=== PATIENT | female | born 1990 | race Caucasian/White ===

== ENCOUNTER 2017-08-26 09:19 | Inpatient (IN) | payer OTHER ==
[~2017-08-26] VITALS: Ht 154.9 cm; Wt 52.2 kg
[~2017-08-26 09:19] MED LIST: ALYACEN 1-35-21 EACH PO; BLISOVI 24 FE1 EACH PO; FLEXERIL10 MG PO; HYDROXYZINE HCL50 M1 PO; MULTI-DAY VITA1 EACH PO; OXYCODONE HCL10 M2 PO; PERCOCET 325 MG1 TA2 PO; PERCOCET 5-3251 EACH PO; PREDNISONE10 M2 PO; TRI-LO-SPRINTEC1 TAB PO; TRIAMCINOLONE A15 G4 TOP; TYLENOL #31 TAB PO; TYLENOL WITH C1 EACH PO; ZOFRAN4 M2 PO
[2017-08-26 10:20] LABS: ABSOLUTE BASOPHIL COUNT 0 /CUMM (0.0-0.2); ABSOLUTE EOSINOPHIL COUNT 0.2 /CUMM (0.0-0.7); ABSOLUTE GRANULOCYTE CT 4.1 /CUMM (1.4-6.5); ABSOLUTE LYMPH COUNT 2.8 /CUMM (1.2-3.4); ABSOLUTE MONOCYTE COUNT 0.5 /CUMM (0.10-0.60); BASOPHIL % 0.5 % (0.0-2.0); EOSINOPHIL % 2.1 % (0-5); GRANULOCYTE % 54.1 % (42.2-75.2); HEMATOCRIT 37.9 % (37-47); MEAN CORPUSCULAR HGB 27.3 PG (27.0-31.0); MEAN CORPUSCULAR HGB CONC 33.4 G/DL (33.0-37.0); MEAN CORPUSCULAR VOLUME 81.8 FL (81.0-99.0); MEAN PLATELET VOLUME 6.4 FL (7.4-10.4); PLATELET COUNT 331 /CUMM (130-400); RBC DISTRIBUTION WIDTH 13.6 % (11.5-14.5); RED BLOOD CELL CT 4.64 /CUMM (4.20-5.40); WHITE BLOOD CELL COUNT 7.6 /CUMM (4.8-10.8)
[2017-08-26] MEDS ORDERED: ALPRAZOLAM0.25 M1 PO (10:28)
[2017-08-26] MEDS ORDERED: FLUOXETINE HCL20 M2 PO (10:28)
--- NOTE | 2017-08-26 10:35 | ED GI/GU/ABDOMINAL COMPLAINT ---
History of Present Illness General Chief Complaint: Abdominal Pain/Flank Pain Stated Complaint: SENT IN BY MD FOR ABD PAIN Source: patient Exam Limitations: no limitations Vital Signs & Intake/Output Vital Signs & Intake/Output Vital Signs Date Time Temp Pulse Resp B/P B/P Pulse O2 O2 Flow FiO2 Mean Ox Delivery Rate 08/29 1443 98.2 69 20 120/60 98 Room Air 08/29 1038 98.2 60 18 104/78 100 08/29 0624 97.5 78 18 110/68 98 ED Intake and Output 08/29 0000 08/28 1200 Intake Total 1980 240 Output Total 450 Balance 1530 240 Intake, IV 40 Intake, Oral 1940 240 Number 5 Bowel Movements Output, Urine 450 Patient 115 lb Weight Allergies Coded Allergies: latex (Intermediate, LUC SKIN CONTACT, LATEX WITH POWDER IF INH ANAPHYLAXIS 01/21/16) poison lazaro extract (Mild, RASH 01/21/16) azithromycin (VOMIT PROFUSELY, STARTED VOMITING BLOOD ENDED UP HOSPITALIZED 08/02) gluten (CELIAC DISEASE RUNS IN FAMILY, PT REPORTS GLUTEN SENSITIVITY 01/21/16) lactose (LACTOSE INTOLERANT 01/21/16) venom-honey bee (BEE VENOM (HONEY BEE)) (ANAPHYLAXIS 01/21/16) Triage Note: PT SENT TO ED BY MD FOR ABD PAIN. PT STATES SHE HAS BEEN HAVING BLACK STOOL BM'S SINCE LAST NIGHT. C/O LOWER ABD PAIN. C/O NAUSEA, DENIES VOMITING. Triage Nurses Notes Reviewed? yes ? N Is pt currently ? No Onset: Gradual Duration: hour(s): Timing: multiple episodes today Quality/Severity: moderate Severity Numbers: 9 Location: generalized abdomen HPI: 26YO female presents to ED complaining of generalized abdominal pain beginning at midnight this morning. Patient states that she is also having black colored stools and diarrhea, episodes approximately every 45 minutes since midnight. Patient reports bloating and nausea. Patient reports taking ibuprofen 800 mg Q4 -6 HOURS for right wrist tendinitis for 3 days in a row, she discontinued ibuprofen on Saturday. Patient has no history of issues related to NSAIDs reports an allergy to Advil coating. The patient denies fevers, chills, vomiting, chest pain. (Brittany GARZA,Lucy Bah) Reconcile Medications Alprazolam 0.25 MG TABLET 1 TAB PO BIDP PRN ANXIETY (Reported) Fluoxetine HCl 20 MG CAPSULE 1 CAP PO DAILY MENTAL HEALTH (Reported) Norethindrone-Ethinyl Estrad (Alyacen 1-35-28 Tablet) 1 MG-35 MCG TABLET 1 TAB PO DAILY BC (Reported) Omeprazole 20 MG CAPSULE. 1 CAP PO DAILY STOMACH HEALTH (Kelvin BEDOLLA,Kemar) Past History Travel History Traveled to [place] past 21 day No Medical History Any Pertinent Medical History? see below for history Neurological: migraine EENT: NONE Cardiovascular: NONE Respiratory: NONE Gastrointestinal: NONE Hepatic: NONE Renal: NONE Musculoskeletal: NONE Psychiatric: NONE Endocrine: NONE Blood Disorders: NONE Cancer(s): NONE QUILTER FIXER/Reproductive: chlamydia, HPV, miscarriage, PID OVARIAN CYST left ovary cyst rupture Surgical History Surgical History: non-contributory Psychosocial History What is your primary language Urdu Tobacco Use: Never used ETOH Use: occasional use Illicit Drug Use: denies illicit drug use Family History Family History, If Any: Relation not specified for: *No pertinent family history Hx Contributory? No (Lucy Yu) Review of Systems Review of Systems Constitutional: Reports: no symptoms. EENTM: Reports: no symptoms. Respiratory: Reports: no symptoms. Cardiovascular: Reports: no symptoms. GI: Reports: see HPI. Genitourinary: Reports: no symptoms. Musculoskeletal: Reports: no symptoms. Skin: Reports: no symptoms. Neurological/Psychological: Reports: no symptoms. Hematologic/Endocrine: Reports: no symptoms. Immunologic/Allergic: Reports: no symptoms. All Other Systems: Reviewed and Negative (Lucy Yu) Physical Exam Physical Exam General Appearance: well developed/nourished, no apparent distress, alert, awake Head: atraumatic, normal appearance Eyes: Bilateral: normal appearance. Ears, Nose, Throat, Mouth: hearing grossly normal Neck: normal inspection, supple, full range of motion Respiratory: normal breath sounds, no respiratory distress, lungs clear Cardiovascular: regular rate/rhythm Gastrointestinal: distension and firmness throughout exam with RLQ tenderness, + Rosving's sign Rectal: heme negative stool Back: normal inspection, normal range of motion Extremities: normal range of motion Neurologic/Psych: awake, alert, oriented x 3 Skin: intact, normal color, warm/dry Core Measures ACS in differential dx? No Sepsis Present: No Sepsis Focused Exam Completed? No (Lucy Yu) Progress Differential Diagnosis: appendicitis, biliary colic, bowel obstruction, ectopic , gastritis, hepatitis, hernia, inflamm bowel dis, intrauterine , kidney stone, ovarian cyst, ovarian torsion, PID/cervicitis, peptic ulcer, PUD/GERD, SBO, threatened AB, UTI/pyelo Plan of Care: Orders Procedure Date/time Status Low Fiber Diet 08/29 L Active HIGH SENSITIVITY CRP 08/29 1058 Complete WESTERGREN SED RATE 08/29 1058 Complete Current Medications Sig/Tracey Start time Last Medication Dose Stop Time Status Admin Omeprazole 20 MG DAILY AC 08/30 0700 AC (Prilosec) Oxycodone/ 1 TAB Q4P PRN 08/29 1100 AC 08/29 Acetaminophen 2034 (Percocet) Dicyclomine HCl 20 MG TIDAC/HS 08/27 1700 AC 08/29 (Bentyl) 2034 Fluoxetine HCl 20 MG DAILY 08/27 1510 AC 08/29 (Prozac) 1123 Phenol 2 SPRAY Q2P PRN 08/27 1430 AC (Chloraseptic (Phenaseptic) [place]) Ondansetron HCl 4 MG Q6P PRN 08/27 0830 AC 08/29 (Zofran) 1819 Laboratory Tests 08/29/17 1122: C-React Prot High Sens 2.8, ESR Westergren 6 08/29/17 0630: CBC w Diff NO MAN DIFF REQ, RBC 4.51, MCV 81.7, MCH 27.7, MCHC 34.0, RDW 13.6, MPV 7.1 L, Gran % 44.5, Lymphocytes % 42.4, Monocytes % 8.9, Eosinophils % 3.5, Basophils % 0.7, Absolute Granulocytes 3.2, Absolute Lymphocytes 3.1, Absolute Monocytes 0.7 H, Absolute Eosinophils 0.3, Absolute Basophils 0.1 Patient has significant abdominal firmness and distention on physical exam. Her CT scan shows fatty liver however no other acute abnormality. Patient's appendix was not visualized well on CT scan. Spoke with Dr. Marcelino regarding this patient and reviewed her CAT scan. Given the patient's normal labs and normal CAT scan reading he feels additional work up could include GI consult and observation. Spoke with DR. Mason - he reviewed her CAT scan and labs and states that if patient continues to clinically appear abnormal she may require observation. Dr. Hipona present to see and evaluate the patient, he agrees with plan for observation or admission given patient's abdominal firmness and distention. Patient's transabdominal exam was limited as patient could not tolerate ultrasound probe. Patient has persistent pain here in the emergency department. Patient's guaiac exam was negative however could not guaiac stool sample, this exam may be limited. Case management recommends full admission for this patient. Spoke with hospitalist Dr. De La Torre regarding this patient's general medicine admission. He recommends NG tube placement for possible decompression. Diagnostic Imaging: Viewed by Me: Radiology Read. Discussed w/RAD: Radiology Read. Radiology Impression: PATIENT: BRIAN NASH PRESENT AGE: 26 PATIENT ACCOUNT NO: [id number] : 91 LOCATION: [facility] ORDERING PHYSICIAN: Lucy GARZA SERVICE DATE: 08/26/17 EXAM TYPE: CAT - CT ABD & PELVIS W IV CONTRAST EXAMINATION: CT ABDOMEN AND PELVIS WITH CONTRAST CLINICAL INFORMATION: Generalized abdominal pain, firmness and distention. Evaluate for obstruction. COMPARISON: Previous CT scans July and October 2015 and pelvic ultrasound August 2015 TECHNIQUE: Multidetector volumetric imaging was performed of the abdomen and pelvis following IV administration of 95 mL of Optiray 320 intravenous contrast. Sagittal and coronal reformatted images were obtained on the technologist's workstation. DLP: 246 mGy-cm FINDINGS : LUNG BASES: The visualized lung bases are unremarkable. LIVER, GALLBLADDER, AND BILIARY TREE: The liver is slightly low in attenuation suggestive of fatty infiltration. No focal liver lesion is seen. The gallbladder is unremarkable. PANCREAS: Unremarkable. SPLEEN: Unremarkable. ADRENAL GLANDS: Unremarkable. KIDNEYS AND URETERS: The kidneys are normal in size, shape, and attenuation. No hydronephrosis, hydroureter, or calculi seen. No perinephric stranding. BLADDER: Not optimally distended. GASTROINTESTINAL TRACT: The small and large bowel are unremarkable. The appendix is is not identified with certainty. No evidence of ascites is seen. ABDOMINAL WALL: No significant hernia is appreciated. LYMPH NODES: Normal. VASCULAR: Unremarkable. PELVIC VISCERA: The uterus and adnexa are unremarkable. OSSEOUS STRUCTURES: Unremarkable. IMPRESSION: Low-attenuation liver suggestive of fatty infiltration otherwise unremarkable exam. No evidence of obstruction. DICTATED BY: Racheal Finley MD DATE/TIME DICTATED:08/26/171205 PAIN MANAGEMENT SPECIALIST:CHAU DATE/TIME TRANSCRIBED:08/26/171205 CONFIDENTIAL, DO NOT COPY WITHOUT APPROPRIATE AUTHORIZATION. <Electronically signed in Other Vendor System> SIGNED BY: Racheal Finley MD 08/26/17 1218 , PATIENT: BRIAN NASH PRESENT AGE: 26 PATIENT ACCOUNT NO: [id number] : 91 LOCATION: [facility] ORDERING PHYSICIAN: Lucy GARZA SERVICE DATE: 08/26/17 EXAM TYPE: US - US- TRANSVAGINAL EXAMINATION: US PELVIS COMPLETE US PELVIS ENDOVAGINAL WITH DOPPLER CLINICAL INFORMATION: Assess for pelvic, uterine, ovarian abnormality. Abdominal pain and distention with firmness COMPARISON: CT earlier the same day. Prior ultrasound 08/26/2015 TECHNIQUE: Transabdominal and transvaginal images of the pelvis were obtained. Color and spectral Doppler evaluation of the ovaries was performed. FINDINGS: Transabdominal imaging was attempted but unsuccessful. The patient was in too much pain to tolerate transabdominal imaging. UTERUS: Anteverted. Normal size and contour, measuring 6.1 x 3.3 x 3.9 cm (cervix to fundus x AP x transverse). Uniform, homogeneous endometrium measures 0.7 cm in width. The cervical length is 2.5 cm. RIGHT OVARY: Normal-appearing right ovary is seen measuring 3.6 x 1.7 x 2.9 cm, volume 9.3 mm. There is a single dominant cyst within the right ovary that measures 2.1 cm in greatest dimension with a peripheral thin septation. No mural nodularity. Normal arterial and venous spectral Doppler waveforms are identified. LEFT OVARY: Normal-appearing left ovary seen measuring 2.0 x 1.4 x 1.3 cm, 1.9 mL volume. Normal arterial and venous spectral Doppler waveforms are identified within the left ovary. FREE FLUID: No pelvic free fluid. IMPRESSION: Limited transabdominal imaging as described above. Normal sonographic appearance of the uterus and ovaries. There is a 2.1 cm dominant cyst in the right ovary, an expected physiologic finding in a reproductive age female patient. Normal arterial and venous spectral Doppler waveforms are identified within the ovaries bilaterally. No findings to suggest active ovarian torsion at the time of the scan. DICTATED BY: Matteo Jones MD DATE/TIME DICTATED:08/26/171706 PAIN MANAGEMENT SPECIALIST:CHAU DATE/TIME TRANSCRIBED:08/26/171706 CONFIDENTIAL, DO NOT COPY WITHOUT APPROPRIATE AUTHORIZATION. <Electronically signed in Other Vendor System> SIGNED BY: Matteo Jones MD 08/26/171712 Initial ED EKG: none (Brittany GARZA,Lucy Bah) Departure Departure Disposition: STILL A PATIENT Condition: Stable Clinical Impression Primary Impression: Intractable abdominal pain Secondary Impressions: Abdominal distention Referrals: Isaiah BEDOLLA,Sai Ledezma (PCP/Family) Departure Forms: Customer Survey General Discharge Information Admission Note Spoke With: Feliciano Fernandez MD Documentation of Exam: Documentation of any treatments & extenuating circumstances including Concerns Regarding Discharge (functional status, medication knowledge or non-compliance, living conditions, etc.) that warrant an admission rather than observation: [ Patient has intractable abdominal pain requiring IV pain medications, persistent abdominal distention and firmness unexplained by imaging here in the emergency department requiring general surgery consult, possible gastroenterology consults , IV fluids, NG tube, repeat labs, premature discharge medically unsafe] (Brittany GARZA,Lucy Bah) Departure Prescriptions: Current Visit Scripts Omeprazole 1 CAP PO DAILY #30 CAP PA/WILLOW WORKER Co-Sign Statement Statement: ED Attending supervision documentation- x I saw and evaluated the patient. I have also reviewed all the pertinent lab results and diagnostic results. I agree with the findings and the plan of care as documented in the PA's/WILLOW WORKER's documentation. Significant distension developing RLQ tenderness [] I have reviewed the ED Record and agree with the PA's/WILLOW WORKER's documentation. [] Additions or exceptions (if any) to the PAs/WILLOW WORKER's note and plan are summarized below: [] (Kelvin BEDOLLA,Kemar)
--- NOTE | 2017-08-26 12:18 | CT SCAN REPORT ---
EXAMINATION: CT ABDOMEN AND PELVIS WITH CONTRAST CLINICAL INFORMATION: Generalized abdominal pain, firmness and distention. Evaluate for obstruction. COMPARISON: Previous CT scans July and October 2015 and pelvic ultrasound August 2015 TECHNIQUE: Multidetector volumetric imaging was performed of the abdomen and pelvis following IV administration of 95 mL of Optiray 320 intravenous contrast. Sagittal and coronal reformatted images were obtained on the technologist's workstation. DLP: 246 mGy-cm FINDINGS: LUNG BASES: The visualized lung bases are unremarkable. LIVER, GALLBLADDER, AND BILIARY TREE: The liver is slightly low in attenuation suggestive of fatty infiltration. No focal liver lesion is seen. The gallbladder is unremarkable. PANCREAS: Unremarkable. SPLEEN: Unremarkable. ADRENAL GLANDS: Unremarkable. KIDNEYS AND URETERS: The kidneys are normal in size, shape, and attenuation. No hydronephrosis, hydroureter, or calculi seen. No perinephric stranding. BLADDER: Not optimally distended. GASTROINTESTINAL TRACT: The small and large bowel are unremarkable. The appendix is is not identified with certainty. No evidence of ascites is seen. ABDOMINAL WALL: No significant hernia is appreciated. LYMPH NODES: Normal. VASCULAR: Unremarkable. PELVIC VISCERA: The uterus and adnexa are unremarkable. OSSEOUS STRUCTURES: Unremarkable. IMPRESSION: Low-attenuation liver suggestive of fatty infiltration otherwise unremarkable exam. No evidence of obstruction.
--- NOTE | 2017-08-26 17:13 | ULTRASOUND REPORT ---
EXAMINATION: US PELVIS COMPLETE US PELVIS ENDOVAGINAL WITH DOPPLER CLINICAL INFORMATION: Assess for pelvic, uterine, ovarian abnormality. Abdominal pain and distention with firmness COMPARISON: CT earlier the same day. Prior ultrasound 08/26/2015 TECHNIQUE: Transabdominal and transvaginal images of the pelvis were obtained. Color and spectral Doppler evaluation of the ovaries was performed. FINDINGS: Transabdominal imaging was attempted but unsuccessful. The patient was in too much pain to tolerate transabdominal imaging. UTERUS: Anteverted. Normal size and contour, measuring 6.1 x 3.3 x 3.9 cm (cervix to fundus x AP x transverse). Uniform, homogeneous endometrium measures 0.7 cm in width. The cervical length is 2.5 cm. RIGHT OVARY: Normal-appearing right ovary is seen measuring 3.6 x 1.7 x 2.9 cm, volume 9.3 mm. There is a single dominant cyst within the right ovary that measures 2.1 cm in greatest dimension with a peripheral thin septation. No mural nodularity. Normal arterial and venous spectral Doppler waveforms are identified. LEFT OVARY: Normal-appearing left ovary seen measuring 2.0 x 1.4 x 1.3 cm, 1.9 mL volume. Normal arterial and venous spectral Doppler waveforms are identified within the left ovary. FREE FLUID: No pelvic free fluid. IMPRESSION: Limited transabdominal imaging as described above. Normal sonographic appearance of the uterus and ovaries. There is a 2.1 cm dominant cyst in the right ovary, an expected physiologic finding in a reproductive age female patient. Normal arterial and venous spectral Doppler waveforms are identified within the ovaries bilaterally. No findings to suggest active ovarian torsion at the time of the scan.
--- NOTE | 2017-08-26 19:33 | History & Physical ---
Khoa Weiss MD 08/26/171931: General Information and HPI MD Statement: I have seen and personally examined BRIAN ZHOU and documented this H&P. The patient is a 26 year old F who presented with a patient stated chief complaint of [abdominal pain and distension]. Source of Information: patient Exam Limitations: no limitations History of Present Illness: Patient is a 26-year-old female with no significant past medical history presents complaining of dark melanotic stool and right lower quadrant pain. Patient reports that she midnight the day of presentation she had the urge to defecate and had loose, black stool. She also began having right lower quadrant pain. She was having approximately 1 bowel movement on hour and they remained soft and black. At that time she also noted abdominal distention. She called her doctor when the office opened and was recommended to come to the ED. She has been taking 800 mg ibuprofen every 4-6 hours for the last several days due to wrist tendinitis. In the past she has had periods of long-term NSAID use as well with no complications. Her pain is in the right lower quadrant sharp, 8/10 radiates to the rest of the abdomen. She has had associated nausea but has not vomited. She denies any chest pain, shortness of breath, fever, chills. Allergies/Medications Allergies: Coded Allergies: latex (Intermediate, LUC SKIN CONTACT, LATEX WITH POWDER IF INH ANAPHYLAXIS 01/21/16) poison lazaro extract (Mild, RASH 01/21/16) azithromycin (VOMIT PROFUSELY, STARTED VOMITING BLOOD ENDED UP HOSPITALIZED 08/02) gluten (CELIAC DISEASE RUNS IN FAMILY, PT REPORTS GLUTEN SENSITIVITY 01/21/16) lactose (LACTOSE INTOLERANT 01/21/16) venom-honey bee (BEE VENOM (HONEY BEE)) (ANAPHYLAXIS 01/21/16) Home Med list Alprazolam 0.25 MG TABLET 1 TAB PO BIDP PRN ANXIETY (Reported) Fluoxetine HCl 20 MG CAPSULE 1 CAP PO DAILY MENTAL HEALTH (Reported) Norethindrone-Ethinyl Estrad (Alyacen 1-35-28 Tablet) 1 MG-35 MCG TABLET 1 TAB PO DAILY BC (Reported) Past History Travel History Traveled to [place] past 21 day No Medical History Neurological: migraine EENT: NONE Cardiovascular: NONE Respiratory: NONE Gastrointestinal: NONE Hepatic: NONE Renal: NONE Musculoskeletal: NONE Psychiatric: NONE Endocrine: NONE Blood Disorders: NONE Cancer(s): NONE FACILITIES ASSISTANT/Reproductive: chlamydia, HPV, miscarriage, PID OVARIAN CYST left ovary cyst rupture Isolation History: Standard Surgical History Surgical History: non-contributory Past Family/Social History Family History Relations & Conditions if any Relation not specified for: *No pertinent family history Psychosocial History Where do you live? Home Services at Home: None Primary Language: [place] Smoking Status: Never Smoked ETOH Use: occasional use Illicit Drug Use: denies illicit drug use Functional Ability ADLs Independent: dressing, eating, toileting, bathing. Ambulation: independent IADLs Independent: shopping, housework, finances, food prep, telephone, transportation , medication admin. Review of Systems Review of Systems Constitutional: Denies: chills, fever. EENTM: Reports: no symptoms. Cardiovascular: Denies: chest pain, palpitations, syncope. Respiratory: Denies: cough, short of breath. GI: Reports: abdominal pain, bloating, constipation, melena, nausea. Genitourinary: Reports: no symptoms. Musculoskeletal: Reports: no symptoms. Skin: Reports: no symptoms. Neurological/Psychological: Reports: no symptoms. Exam & Diagnostic Data Last 24 Hrs of Vital Signs/I&O Vital Signs Date Time Temp Pulse Resp B/P B/P Pulse O2 O2 Flow FiO2 Mean Ox Delivery Rate 08/26 2154 97.9 65 18 117/80 99 Room Air 08/26 1747 98.3 70 12 110/60 98 Room Air 08/26 1409 98.5 51 18 128/87 95 Room Air 08/26 1341 98.7 08/26 1309 98.5 08/26 1150 98.5 53 18 118/66 100 Room Air 08/26 1023 98 08/26 0933 97.4 61 20 134/85 98 Room Air Intake & Output 08/27 0800 08/27 0000 08/26 1600 Intake Total 1000 Output Total 200 Balance -200 1000 Intake, IV 1000 Intake, Oral 0 Output, 200 Gastric Drainage Patient 115 lb 120 lb Weight Weight Reported by Patient Reported by Patient Measurement Method Physical Exam General Appearance Alert, Oriented X3, Cooperative Skin No Rashes Skin Temp/Moisture Exam: Warm/Dry Cardiovascular Regular Rate, Normal S1, Normal S2 Lungs Clear to Auscultation, Normal Air Movement Abdomen Normal Bowel Sounds, distended, tender to palpation diffusely worst in the RLQ Neurological Normal Speech, Strength at 5/5 X4 Ext, Sensation Intact, Cranial Nerves 3-12 NL Extremities No Clubbing, No Cyanosis, No Edema Last 24 Hrs of Labs/Alex: Laboratory Tests 08/26/17 1313: Lactic Acid Cancelled 08/26/17 1035: Urine Opiates Screen < 100, Methadone Screen < 40, Barbiturate Screen < 60, Ur Phencyclidine Scrn < 6.00, Amphetamines Screen < 100, U Benzodiazepines Scrn 398 H, Urine Cocaine Screen < 50, Urine Cannabis Screen < 5.00, Urine Color YEL, Urine Clarity CLEAR, Urine pH 6.0, Ur Specific [place] 1.025, Urine Protein NEG, Urine Ketones NEG, Urine Nitrite NEG, Urine Bilirubin NEG, Urine Urobilinogen 0.2, Ur Leukocyte Esterase NEG, Ur Microscopic EXAM NOT REQUIRED, Urine Hemoglobin NEG, Urine Glucose NEG, Urine Test NEGATIVE 08/26/17 1013: Anion Gap 11, Estimated GFR > 60, BUN/Creatinine Ratio 30.0 H, Glucose 80, Lactic Acid 0.8, Calcium 9.8, Total Bilirubin 0.7, AST 28, ALT 45, Alkaline Phosphatase 66, C-Reactive Prot, Quant 0.6, Total Protein 7.8, Albumin 4.6, Globulin 3.2, Albumin/Globulin Ratio 1.4, CBC w Diff NO MAN DIFF REQ, RBC 4.64, MCV 81.8, MCH 27.3, MCHC 33.4, RDW 13.6, MPV 6.4 L, Gran % 54.1, Lymphocytes % 36.3, Monocytes % 7.0, Eosinophils % 2.1, Basophils % 0.5, Absolute Granulocytes 4.1, Absolute Lymphocytes 2.8, Absolute Monocytes 0.5, Absolute Eosinophils 0.2, Absolute Basophils 0 Microbiology 08/26 1347 NASOPHARYN: Influenza Virus A & B Rapid Smear - COMP Diagnostic Data CXR Results no acute abnormality of the chest Other Results CT abd/pelvis with IV contrast LUNG BASES: The visualized lung bases are unremarkable. LIVER, GALLBLADDER, AND BILIARY TREE: The liver is slightly low in attenuation suggestive of fatty infiltration. No focal liver lesion is seen. The gallbladder is unremarkable. PANCREAS: Unremarkable. SPLEEN: Unremarkable. ADRENAL GLANDS: Unremarkable. KIDNEYS AND URETERS: The kidneys are normal in size, shape, and attenuation. No hydronephrosis, hydroureter, or calculi seen. No perinephric stranding. BLADDER: Not optimally distended. GASTROINTESTINAL TRACT: The small and large bowel are unremarkable. The appendix is is not identified with certainty. No evidence of ascites is seen. ABDOMINAL WALL: No significant hernia is appreciated. LYMPH NODES: Normal. VASCULAR: Unremarkable. PELVIC VISCERA: The uterus and adnexa are unremarkable. OSSEOUS STRUCTURES: Unremarkable. IMPRESSION: Low-attenuation liver suggestive of fatty infiltration otherwise unremarkable exam. No evidence of obstruction. Transvaginal US Transabdominal imaging was attempted but unsuccessful. The patient was in too much pain to tolerate transabdominal imaging. UTERUS: Anteverted. Normal size and contour, measuring 6.1 x 3.3 x 3.9 cm (cervix to fundus x AP x transverse). Uniform, homogeneous endometrium measures 0.7 cm in width. The cervical length is 2.5 cm. RIGHT OVARY: Normal-appearing right ovary is seen measuring 3.6 x 1.7 x 2.9 cm, volume 9.3 mm. There is a single dominant cyst within the right ovary that measures 2.1 cm in greatest dimension with a peripheral thin septation. No mural nodularity. Normal arterial and venous spectral Doppler waveforms are identified. LEFT OVARY: Normal-appearing left ovary seen measuring 2.0 x 1.4 x 1.3 cm, 1.9 mL volume. Normal arterial and venous spectral Doppler waveforms are identified within the left ovary. FREE FLUID: No pelvic free fluid. IMPRESSION: Limited transabdominal imaging as described above. Normal sonographic appearance of the uterus and ovaries. There is a 2.1 cm dominant cyst in the right ovary, an expected physiologic finding in a reproductive age female patient. Normal arterial and venous spectral Doppler waveforms are identified within the ovaries bilaterally. No findings to suggest active ovarian torsion at the time of the scan. ABD XR Normal bowel gas pattern without dilated loops of bowel. No air-fluid levels on the upright view. No free air. The lung bases are clear. No acute osseous abnormality. No suspicious calcifications. IMPRESSION: Normal bowel gas pattern. No evidence of free air. Assessment/Plan Assessment: Patient is a 26-year-old female with PMH significant for anxiety, presents complaining of dark melanotic stool and right lower quadrant pain. She had loose dark brown to black stool and as been taking high-dose ibuprofen for the past several days. She has associated abdominal distention, nausea no vomiting. While in the ED and NG tube was placed, however once the patient was on the floor she became very anxious, stating that she could not breathe and the NG tube had to be removed. Vital signs on admission: T 97.4, BP 61, RR 20, BP 134/85, pulse ox 98% on room air Labs: H/H 12.7/37.9, BUN 18, BUN/Cr ratio 30 Problem list #GI bleed likely upper secondary to NSAID use, #Right lower quadrant pain and worsening abdominal distention cannot rule out IBD at this time, imaging shows no obstruction #Anxiety Plan -Admit to general medicine floor -Keep nothing by mouth pending GI evaluation -GI consult placed -IV PPI twice a day -Trend CBC -Adequate pain control Diet: Nothing by mouth DVT prophylaxis: Alps, no pharmacological prophylaxis given GI bleed CODE STATUS: Full Code As Ranked By This Provider Problem List: 1. Abdominal distention 2. Intractable abdominal pain Core Measures/Misc (02/03) Acute Coronary Syndrome ACS Diagnosis: No Congestive Heart Failure Congestive Heart Failure Diagnosis No Cerebrovascular Accident CVA/TIA Diagnosis: No VTE (View Protocol) VTE Risk Factors Immobility No Mechanical VTE Prophylaxis d/t N/A MechProphylax Ordered No VTE Pharm Prophylaxis d/t Bleeding (Active) Sepsis (View protocol) Sepsis Present: No Susannah George 08/27/17 0007: Resident Review Statement Resident Statement: examined this patient, discussed with communications intern, agreed with communications intern, reviewed EMR data (avail), reviewed images Other Findings: 26 year old women with past medical history significant for anxiety, remote history of ovarian rupture comes in for for evaluation of multiple episodes of dark-colored stools associated with right upper lower quadrant, abdominal pain and nausea. Boyfriend is at bedside. Incident last few days she has been taking 800mg of ibuprofen daily for wrist pain. She does give history of NSAID use in the past for pain. Denies dizziness, shortness of breath, syncope, palpitations, bright red bleeding per rectum, any association with eating, fever, chills or any previous similar episodes Her LMP was 18 of august, no abnormal menstrual bleeding noted, urine test neg Vitals temperature 98.5, heart rate 51, respiratory rate 81, blood pressure 128/ 87, saturating 95% on room air. Examination patient is alert oriented and not in acute distress. On examination abdomem is distended tender to right upper and lower quadrant, with some rigidity noted. Normal bowel sounds heard in all areas. No rebound tenderness noted. Rest of examination as above. Guaiac negative in the ED Labs on admission CBC/ BeP unremarkable Transvaginal ultrasound was within normal limits CT ABD & PELVIS W IV CONTRAST Low-attenuation liver suggestive of fatty infiltration otherwise unremarkable exam. No evidence of obstruction. ED course: NG tube was placed in ED, our patient was unable to tolerate it and NG tube was removed as soon as she was transferred to the floor. Assessment: In the setting of recent ibuprofen use peptic ulcer disease is high on the differentials. other possibilities are irritable bowel syndrome versus cholecystitis less likely as she has no right upper quadrant abdominal pain with a normal T bili, low suspicion for pancreatitis as her lipase is 59 plan admit to Gen medicine, vitals per protocol Keep patient nothing by mouth for now to promote bowel rest and possible endoscopy tomorrow IV fluids D5 half at 75 mL GI consult in the morning Follow-up morning labs Morphine for point control DVT prophylaxis with Alps Avoid NSAIDs Patient is full code Feliciano Fernandez MD 08/27/17 0132: Attending MD Review Statement Attending Statement Attending MD Statement: examined this patient, discuss w/resident/PA/HAND MOLDER, agreed w/resident/PA/HAND MOLDER, discussed with nursing Attending Assessment/Plan: Ms. Zhou is a 26-year-old female with h/o anxiety, remote h/o ovarian rupture presents with complaints of right lower quadrant pain more in severity compared to the diffuse abdominal pain all over and back tarry stools since yesterday. Vision has been having poor by mouth intake for the past 3 days. Patient has been taking ibuprofen 600 mg every 4-6 hours in the past week for wrist tendinitis. On exam - BP - 110/60, HR of 70, RR of 12, afebrile General Appearance Alert, Oriented X3 Skin Temp/Moisture Exam: Warm/Dry Cardiovascular Normal S1, Normal S2 Lungs Clear to Auscultation bilaterally Abdomen Normal Bowel Sounds,distended, tender all over, specifically in the right lower quadrant Excessive voluntary guarding and rigidity Neurological No focal neurological deficits Extremities No Clubbing, No Cyanosis, No Edema CT Abdomen Pelvis - Low-attenuation liver suggestive of fatty infiltration otherwise unremarkable exam. No evidence of obstruction. Transvaginal US - Limited transabdominal imaging as described above. Normal sonographic appearance of the uterus and ovaries. There is a 2.1 cm dominant cyst in the right ovary, an expected physiologic finding in a reproductive age female patient. Normal arterial and venous spectral Doppler waveforms are identified within the ovaries bilaterally. No findings to suggest active ovarian torsion at the time of the scan. Assessment 1. Abdominal pain with loose bowel movements - DD: PUD, malabsorption syndromes, IBD, cholecystitis 2. Dark tarry stools with recent NSAID use - ?NSAID induced PUD 3. Anxiety Plan NPO, IVF, IV Protonix 40 mg BID GI consult - possible EGD in AM. If normal may need colonoscopy to assess for IBD Repeat CBC. Morphine for pain control Avoid NSAIDS, will obtain lipase levels DVT px -Alps
[2017-08-26 21:54] VITALS: BP 117/80
--- NOTE | 2017-08-26 23:10 | RADIOLOGY REPORT ---
EXAMINATION:\H\ \N\XR CHEST CLINICAL INFORMATION: NG tube placement. COMPARISON: CT scan abdomen pelvis 08/26/2017 TECHNIQUE: Frontal view of the chest was obtained. 9:10 PM FINDINGS: The nasogastric tube tip is in the stomach. The sidehole is at the level of the gastroesophageal junction. The catheter could be advanced up to 6 cm to move the sidehole into the stomach. There is no acute abnormality of the chest. Lungs are clear. No pulmonary vascular congestion. The cardiac and mediastinal contours are normal. The heart size is normal. There is no pleural effusion. There is no pneumothorax. IMPRESSION: The nasogastric tube tip is in the stomach. The sidehole is at the level of the gastroesophageal junction. The catheter could be advanced up to 6 cm to move the sidehole into the stomach.
--- NOTE | 2017-08-26 23:32 | RADIOLOGY REPORT ---
EXAMINATION: XR ABDOMEN MULTIPLE VIEWS CLINICAL INDICATION: Abdominal pain and distention COMPARISON: 08/26/2017 TECHNIQUE: 2 views of the abdomen. FINDINGS: Normal bowel gas pattern without dilated loops of bowel. No air-fluid levels on the upright view. No free air. The lung bases are clear. No acute osseous abnormality. No suspicious calcifications. IMPRESSION: Normal bowel gas pattern. No evidence of free air.
[2017-08-27 02:06] VITALS: BP 116/53
--- NOTE | 2017-08-27 07:02 | PN- Housestaff ---
Thomas Alexander MD,[facility] 08/27/17 0702: Subjective Follow-up For: Abdominal pain R/o GI bleeding Subjective: Patient visited today, was lying in bed in mild acute distress, was alert and oriented, was NPO and planned for EGD today. still complaining of abdominal pain Complained of bloody urine for one time overnight. No more bowel movements. No fever or chills, no shortness of breathing, no chest pain, no other events. Review of Systems Constitutional: Reports: see HPI. Objective Last 24 Hrs of Vital Signs/I&O Vital Signs Date Time Temp Pulse Resp B/P B/P Pulse O2 O2 Flow FiO2 Mean Ox Delivery Rate 08/27 0733 98.1 65 20 106/70 99 Room Air 08/27 0206 98.1 66 18 116/53 99 Room Air 08/26 2154 97.9 65 18 117/80 99 Room Air 08/26 1747 98.3 70 12 110/60 98 Room Air 08/26 1409 98.5 51 18 128/87 95 Room Air Intake & Output 08/27 1600 08/27 0800 08/27 0000 Intake Total 700 150 Output Total 300 Balance 700 -150 Intake, IV 700 150 Intake, Oral 0 0 Number 0 0 Bowel Movements Output, 300 Gastric Drainage Patient 115 lb Weight Weight Reported by Patient Measurement Method Physical Exam General Appearance: Alert, Oriented X3, Cooperative, Mild Distress Skin: No Significant Lesion Skin Temp/Moisture Exam: Warm/Dry Sepsis Skin Exam (color): Normal for Ethnicity HEENT: Atraumatic, EOMI, Mucous Membr. moist/pink Cardiovascular: Regular Rate, Normal S1, Normal S2 Lungs: Clear to Auscultation Abdomen: mildly tenderness to palpitation in right lower quadrant Extremities: No Cyanosis, No Edema Current Medications: Current Medications Sig/Tracey Start time Last Medication Dose Route Stop Time Status Admin Acetaminophen 1,000 MG ONCE ONE 08/26 2230 DC 08/27 N/A 1 UNIT IV 08/26 2244 0011 Benzocaine/Butamben/ 1 JANUARY ONCE ONE 08/26 2114 DC Tetracaine HCl TOP 08/27 2115 Dextrose/Sodium 1,000 ML .[id number] 08/26 2014 AC 08/27 Chloride IV 0900 Dicyclomine HCl 20 MG 4 TIMES/DAY 08/27 1400 UNVr PO Lidocaine 2 JANUARY .STK-MED ONE 08/27 1325 DC TOP 08/27 1326 Lidocaine 50 ML .STK-MED ONE 08/27 1325 DC TOP 08/27 1326 Lidocaine 0 .STK-MED ONE 08/26 2058 DC TOP Lidocaine 15 ML ONCE ONE 08/26 2045 DC 08/26 PO 08/26 2045 2105 Lorazepam 0.5 MG ONCE ONE 08/26 2300 CAN IV 08/26 2301 Metoclopramide HCl 10 MG ONCE ONE 08/26 1745 CAN IV 08/26 174 Metoclopramide HCl 0 .STK-MED ONE 08/26 1309 CAN .ROUTE Morphine Sulfate 2 MG Q5 PRN 08/27 0520 AC 08/27 IV 1134 Morphine Sulfate 2 MG Q4P PRN 08/27 0445 DC IV Morphine Sulfate 0 .STK-MED ONE 08/26 204 DC .ROUTE Morphine Sulfate 1 MG ONCE ONE 08/26 204 DC 08/26 IV 08/26 2045 2105 Morphine Sulfate 0 .STK-MED ONE 08/26 1804 DC .ROUTE Morphine Sulfate 2 MG ONCE ONE 08/26 1800 DC 08/26 IV 08/26 1801 1802 Morphine Sulfate 0 .STK-MED ONE 08/26 1423 DC .ROUTE Morphine Sulfate 2 MG ONCE ONE 08/26 1415 DC 08/26 IV 08/26 1416 1419 Ondansetron HCl 4 MG Q6P PRN 08/27 0830 AC 08/27 IV 0831 Ondansetron HCl 4 MG ONCE ONE 08/26 2215 DC 08/26 IV 08/26 2216 2230 Ondansetron HCl 0 .STK-MED ONE 08/26 1804 DC .ROUTE Ondansetron HCl 4 MG ONCE ONE 08/26 1745 DC 08/26 IV 08/26 1746 1802 Pantoprazole Sodium 40 MG BID 08/26 2300 AC 08/27 IV 0831 Potassium Chloride 40 MEQ .Q10H 08/26 2014 DC Dextrose/Water 1,000 ML IV Last 24 Hrs of Lab/Alex Results Last 24 Hrs of Labs/Mics: Laboratory Tests 08/27/17 0606: Anion Gap 8, Estimated GFR > 60, BUN/Creatinine Ratio 13.3, TSH 2.730, Free T4 1.03, CBC w Diff NO MAN DIFF REQ, RBC 4.18 L, MCV 82.1, MCH 27.9, MCHC 34.0, RDW 13.8, MPV 6.9 L, Gran % 51.3, Lymphocytes % 38.6, Monocytes % 7.3, Eosinophils % 2.3, Basophils % 0.5, Absolute Granulocytes 3.5, Absolute Lymphocytes 2.7, Absolute Monocytes 0.5, Absolute Eosinophils 0.2, Absolute Basophils 0 Assessment/Plan Assessment: Patient is a 26-year-old female presented with dark stool and RLQ pain, nausea but no Vomiting h/o taking ibuprofen PMH: anxiety Vital signs on admission: T 97.4, BP 61, RR 20, BP 134/85, pulse ox 98% on room air Labs: H/H 12.7/37.9, BUN 18, BUN/Cr ratio 30 Patient was admitted to general medicine floor for management of following conditions: RLQ pain, dark stool, R/O GI bleeding No obstruction was found in imaging. Mclean scoring for appendicitis was insignificant. GI consult was placed and EGD was done which did not show any pathology. -Admit to general medicine floor -clear liq diet -dicyclomin per GI -Follow consult placed -IV PPI twice a day -Trend CBC in am -Adequate pain control Diet: clear liq diet DVT prophylaxis: Alps, no pharmacological prophylaxis given still risk of GI bleed CODE STATUS: Full Code Problem List: 1. Abdominal pain Pain Ratin Pain Location: RLQ Pain Goal: Pain 4 or less Pain Plan: Continue current plan, add dicyclomine Tomorrow's Labs & Rationales: Freda Womack MD 08/27/17 1633: Attending MD Review Statement Attending Statement Attending MD Statement: examined this patient, discuss w/resident/PA/TAX COLLECTION COORDINATOR, agreed w/resident/PA/TAX COLLECTION COORDINATOR, discussed with family, reviewed EMR data (avail), discussed with nursing, discussed with case mgmt, amended to note Attending Assessment/Plan: Patient seen and examined. Resting comfortably and not in any acute distress. Boyfriend present at the bedside. No reports of bowel movements overnight. She did report to staff that she urinated blood earlier on today but stated subsequently that this is stable. Urinalysis shows no evidence of red blood cells. She complained of abdominal pain at the time of the visit. On examination abdomen is nondistended, soft. She reported tenderness in the right flank. There is no rebound or guarding. Bowel sounds are normal. EGD done today was unremarkable. Random biopsies were taken. It is unclear the etiology of her symptoms. Gastroenterology service is recommending starting patient on antispasmodic therapy. Service is also considering performing a colonoscopy for further evaluation of her complaints of abdominal discomfort. We will monitor hemoglobin levels overnight. Colonoscopy is no plan for this hospitalization she may be discharged home and followed up in the GI clinic as an outpatient.
[2017-08-27 07:33] VITALS: BP 106/70
[2017-08-27 08:08] LABS: ABSOLUTE BASOPHIL COUNT 0 /CUMM (0.0-0.2); ABSOLUTE EOSINOPHIL COUNT 0.2 /CUMM (0.0-0.7); ABSOLUTE GRANULOCYTE CT 3.5 /CUMM (1.4-6.5); ABSOLUTE LYMPH COUNT 2.7 /CUMM (1.2-3.4); ABSOLUTE MONOCYTE COUNT 0.5 /CUMM (0.10-0.60); BASOPHIL % 0.5 % (0.0-2.0); EOSINOPHIL % 2.3 % (0-5); GRANULOCYTE % 51.3 % (42.2-75.2); HEMATOCRIT 34.3 % (37-47); MEAN CORPUSCULAR HGB 27.9 PG (27.0-31.0); MEAN CORPUSCULAR VOLUME 82.1 FL (81.0-99.0); MEAN PLATELET VOLUME 6.9 FL (7.4-10.4); PLATELET COUNT 276 /CUMM (130-400); RBC DISTRIBUTION WIDTH 13.8 % (11.5-14.5); RED BLOOD CELL CT 4.18 /CUMM (4.20-5.40); WHITE BLOOD CELL COUNT 6.9 /CUMM (4.8-10.8)
--- NOTE | 2017-08-27 09:30 | Cons- Gastroenterology ---
General Information and HPI Consulting Request Date of Consult: 08/27/17 Requested By: Freda Ling MD Reason for Consult: GI bleed Abdominal pain Source of Information: patient History of Present Illness: The patient has no usual or recurrent GI symptoms such as heartburn, indigestion , abdominal pain, or irregular bowel habits. There is no previous history of GI bleeding. She has not been losing weight, her appetite has been normal. 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 She has no dysuria or frequent urinary tract infections. There is no family history of inflammatory bowel disease, peptic ulcer disease, GI malignancy. The patient has been using NSAIDs on a regular basis, with an increase in dose to several times per day recently. 2 days ago she began to have frequent loose black/tarry bowel movements, unaccompanied by bright red blood (not seeping into the toilet water). She then began to develop right-sided abdominal pain, worse in the right lower quadrant, with some radiation to the periumbilical area. Her abdomen became distended. Finally, she developed nausea, with several episodes of vomiting described as "pink." Her last bowel movement was yesterday morning; since that time she has not had significant passage of flatus, nor eructation. CT scan and transvaginal ultrasound performed yesterday were unrevealing. Her stool was reported as guaiac negative in the emergency room. Allergies/Medications Allergies: Coded Allergies: latex (Intermediate, LUC SKIN CONTACT, LATEX WITH POWDER IF INH ANAPHYLAXIS 01/21/16) poison lazaro extract (Mild, RASH 01/21/16) azithromycin (VOMIT PROFUSELY, STARTED VOMITING BLOOD ENDED UP HOSPITALIZED 08/02) gluten (CELIAC DISEASE RUNS IN FAMILY, PT REPORTS GLUTEN SENSITIVITY 01/21/16) lactose (LACTOSE INTOLERANT 01/21/16) venom-honey bee (BEE VENOM (HONEY BEE)) (ANAPHYLAXIS 01/21/16) Home Med List: Alprazolam 0.25 MG TABLET 1 TAB PO BIDP PRN ANXIETY (Reported) Fluoxetine HCl 20 MG CAPSULE 1 CAP PO DAILY MENTAL HEALTH (Reported) Norethindrone-Ethinyl Estrad (Alyacen 1-35-28 Tablet) 1 MG-35 MCG TABLET 1 TAB PO DAILY BC (Reported) Current Medications: Current Medications Sig/Tracey Start time Last Medication Dose Route Stop Time Status Admin Acetaminophen 1,000 MG ONCE ONE 08/26 2230 DC 08/27 N/A 1 UNIT IV 08/26 2244 0011 Acetaminophen 0 .STK-MED ONE 08/26 1309 DC IV Acetaminophen 1,000 MG ONCE ONE 08/26 1230 DC 08/26 N/A 1 UNIT IV 08/26 1244 1309 Benzocaine/Butamben/ 1 JANUARY ONCE ONE 08/26 2115 DC Tetracaine HCl TOP 08/26 2116 Dextrose/Sodium 1,000 ML .[id number] 08/26 2014 AC 08/27 Chloride IV 0900 Famotidine 0 .STK-MED ONE 08/26 1309 DC IV Famotidine 20 MG ONCE ONE 08/26 1230 DC 08/26 IV 08/26 1231 1309 Lidocaine 0 .STK-MED ONE 08/26 2058 DC TOP Lidocaine 15 ML ONCE ONE 08/26 2045 DC 08/26 PO 08/26 2046 2105 Lorazepam 0.5 MG ONCE ONE 08/26 2300 CAN IV 08/26 2301 Metoclopramide HCl 10 MG ONCE ONE 08/26 1745 CAN IV 08/26 1746 Metoclopramide HCl 0 .STK-MED ONE 08/26 1309 CAN .ROUTE Metoclopramide HCl 10 MG ONCE ONE 08/26 1230 DC IV 08/26 1231 Morphine Sulfate 2 MG Q5 PRN 08/27 0520 AC 08/27 IV 0609 Morphine Sulfate 2 MG Q4P PRN 08/27 0445 DC IV Morphine Sulfate 0 .STK-MED ONE 08/26 2047 DC .ROUTE Morphine Sulfate 1 MG ONCE ONE 08/26 2045 DC 08/26 IV 08/26 2046 2105 Morphine Sulfate 0 .STK-MED ONE 08/26 1804 DC .ROUTE Morphine Sulfate 2 MG ONCE ONE 08/26 1800 DC 08/26 IV 08/26 1801 1802 Morphine Sulfate 0 .STK-MED ONE 08/26 1423 DC .ROUTE Morphine Sulfate 2 MG ONCE ONE 08/26 1415 DC 08/26 IV 08/26 1416 1419 Morphine Sulfate 0 .STK-MED ONE 08/26 1125 DC .ROUTE Morphine Sulfate 2 MG ONCE ONE 08/26 1115 DC 08/26 IV 08/26 1116 1124 Ondansetron HCl 4 MG Q6P PRN 08/27 0830 AC 08/27 IV 0831 Ondansetron HCl 4 MG ONCE ONE 08/26 2215 DC / IV 08/26 2216 2230 Ondansetron HCl 0 .STK-MED ONE 08/26 1804 DC .ROUTE Ondansetron HCl 4 MG ONCE ONE 08/26 1745 DC / IV 08/26 1746 1802 Ondansetron HCl 0 .STK-MED ONE 08/26 1126 DC .ROUTE Ondansetron HCl 4 MG ONCE ONE 08/26 1115 DC 08/26 IV 08/26 1116 1124 Pantoprazole Sodium 40 MG BID 08/26 2300 AC 08/27 IV 0831 Potassium Chloride 40 MEQ .Q10H 08/26 2014 DC Dextrose/Water 1,000 ML IV Sodium Chloride 1,000 ML BOLUS ONE 08/26 1200 DC 08/26 IV 08/26 1259 1301 Sodium Chloride 1,000 ML BOLUS ONE 08/26 1115 DC 08/26 IV 08/26 1214 1124 Past History Travel History Traveled to [place] past 21 day No Medical History Blood Transfusion Hx: No Neurological: migraine EENT: NONE Cardiovascular: NONE Respiratory: NONE Gastrointestinal: NONE Hepatic: NONE Renal: NONE Musculoskeletal: NONE Psychiatric: NONE Endocrine: NONE Blood Disorders: THALCEMIA Cancer(s): NONE SOFTWARE QA SYSTEM SPECIALIST/Reproductive: chlamydia, HPV, miscarriage, PID OVARIAN CYST left ovary cyst rupture Surgical History Surgical History: non-contributory Family History Relations & Conditions If Any: Relation not specified for: *No pertinent family history Psychosocial History Where Do You Live? Home Services at Home: None Primary Language: American Smoking Status: Never Smoked ETOH Use: occasional use Illicit Drug Use: denies illicit drug use Functional Ability ADLs Independent: dressing, eating, toileting, bathing. Ambulation: independent IADLs Independent: shopping, housework, finances, food prep, telephone, transportation , medication admin. Review of Systems Review of Systems Constitutional: Reports: chills, diaphoresis. Denies: fever, unexplained weight loss. EENTM: Denies: icterus, epistaxis. Cardiovascular: Denies: chest pain, edema, syncope. Respiratory: Denies: cough, hemoptysis, short of breath. GI: Reports: see HPI. Genitourinary: Denies: dysuria, hematuria. Musculoskeletal: Denies: muscle stiffness, neck pain. Skin: Denies: jaundice, lesions. Neurological/Psychological: Reports: anxiety. Denies: cognitive dysfunction. Hematologic/Endocrine: Denies: bruising, bleeding. Exam & Diagnostic Data Vital Signs and I&O Vital Signs Date Time Temp Pulse Resp B/P B/P Pulse O2 O2 Flow FiO2 Mean Ox Delivery Rate 08/27 0733 98.1 65 20 106/70 99 Room Air 08/27 0206 98.1 66 18 116/53 99 Room Air 08/26 2154 97.9 65 18 117/80 99 Room Air 08/26 1747 98.3 70 12 110/60 98 Room Air 08/26 1409 98.5 51 18 128/87 95 Room Air 08/26 1341 98.7 08/26 1309 98.5 08/26 1150 98.5 53 18 118/66 100 Room Air 08/26 1023 98 08/26 0933 97.4 61 20 134/85 98 Room Air Intake & Output 08/27 1600 08/27 0400 08/26 1600 08/26 0400 08/25 1600 08/25 0400 Intake Total 321 862 4417 Output Total 300 Balance 700 -150 1000 Intake, IV 451 991 0241 Intake, Oral 0 0 0 Number 0 0 Bowel Movements Output, 300 Gastric Drainage Patient 115 lb 120 lb Weight Weight Reported by Patient Reported by Patient Measurement Method Physical Exam: Well-developed, well-nourished, in no apparent distress. Alert and oriented with normal cognition. Skin normal without lesion, rash, jaundice, stigmata chronic liver disease. No adenopathy. Sclera anicteric. Oropharynx normal, and neck supple without thyromegaly or mass. Heart regular rhythm. Lungs clear. Abdomen is distended, with normal bowel sounds and no succussion splash; there is diffuse tenderness, worse in the right lower quadrant and right upper quadrant. No palpable mass or organomegaly. Extremities without clubbing, cyanosis or edema. Distal pulses intact. Results Pertinent Lab Results: Laboratory Tests 08/27 08/26 0606 1313 Chemistry Sodium (137 - 145 mmol/L) 137 Potassium (3.5 - 5.1 mmol/L) 3.7 Chloride (98 - 107 mmol/L) 102 Carbon Dioxide (22 - 30 mmol/L) 27 Anion Gap (5 - 16) 8 BUN (7 - 17 mg/dL) 8 Creatinine (0.5 - 1.0 mg/dL) 0.6 Estimated GFR (>60 ml/min) > 60 BUN/Creatinine Ratio (7 - 25 %) 13.3 Lactic Acid Cancelled TSH (0.270 - 4.200 uIU/mL) 2.730 Free T4 (0.79 - 2.35 ng/dL) 1.03 Hematology CBC w Diff NO MAN DIFF REQ WBC (4.8 - 10.8 /CUMM) 6.9 RBC (4.20 - 5.40 /CUMM) 4.18 L Hgb (12.0 - 16.0 G/DL) 11.6 L Hct (37 - 47 %) 34.3 L MCV (81.0 - 99.0 FL) 82.1 MCH (27.0 - 31.0 PG) 27.9 MCHC (33.0 - 37.0 G/DL) 34.0 RDW (11.5 - 14.5 %) 13.8 Plt Count (130 - 400 /CUMM) 276 MPV (7.4 - 10.4 FL) 6.9 L Gran % (42.2 - 75.2 %) 51.3 Lymphocytes % (20.5 - 51.1 %) 38.6 Monocytes % (1.7 - 9.3 %) 7.3 Eosinophils % (0 - 5 %) 2.3 Basophils % (0.0 - 2.0 %) 0.5 Absolute Granulocytes (1.4 - 6.5 /CUMM) 3.5 Absolute Lymphocytes (1.2 - 3.4 /CUMM) 2.7 Absolute Monocytes (0.10 - 0.60 /CUMM) 0.5 Absolute Eosinophils (0.0 - 0.7 /CUMM) 0.2 Absolute Basophils (0.0 - 0.2 /CUMM) 0 08/26 08/26 1035 1013 Chemistry Sodium (137 - 145 mmol/L) 141 Potassium (3.5 - 5.1 mmol/L) 4.0 Chloride (98 - 107 mmol/L) 102 Carbon Dioxide (22 - 30 mmol/L) 28 Anion Gap (5 - 16) 11 BUN (7 - 17 mg/dL) 18 H Creatinine (0.5 - 1.0 mg/dL) 0.6 Estimated GFR (>60 ml/min) > 60 BUN/Creatinine Ratio (7 - 25 %) 30.0 H Glucose (65 - 99 mg/dL) 80 Lactic Acid (0.7 - 2.1 mmol/L) 0.8 Calcium (8.4 - 10.2 mg/dL) 9.8 Total Bilirubin (0.2 - 1.3 mg/dL) 0.7 AST (14 - 36 U/L) 28 ALT (9 - 52 U/L) 45 Alkaline Phosphatase (<127 U/L) 66 C-Reactive Prot, Quant (<1.0 mg/dL) 0.6 Total Protein (6.3 - 8.2 g/dL) 7.8 Albumin (3.5 - 5.0 g/dL) 4.6 Globulin (1.9 - 4.2 gm/dL) 3.2 Albumin/Globulin Ratio (1.1 - 2.2 %) 1.4 Lipase (23 - 300 U/L) 59 Hematology CBC w Diff NO MAN DIFF REQ WBC (4.8 - 10.8 /CUMM) 7.6 RBC (4.20 - 5.40 /CUMM) 4.64 Hgb (12.0 - 16.0 G/DL) 12.7 Hct (37 - 47 %) 37.9 MCV (81.0 - 99.0 FL) 81.8 MCH (27.0 - 31.0 PG) 27.3 MCHC (33.0 - 37.0 G/DL) 33.4 RDW (11.5 - 14.5 %) 13.6 Plt Count (130 - 400 /CUMM) 331 MPV (7.4 - 10.4 FL) 6.4 L Gran % (42.2 - 75.2 %) 54.1 Lymphocytes % (20.5 - 51.1 %) 36.3 Monocytes % (1.7 - 9.3 %) 7.0 Eosinophils % (0 - 5 %) 2.1 Basophils % (0.0 - 2.0 %) 0.5 Absolute Granulocytes (1.4 - 6.5 /CUMM) 4.1 Absolute Lymphocytes (1.2 - 3.4 /CUMM) 2.8 Absolute Monocytes (0.10 - 0.60 /CUMM) 0.5 Absolute Eosinophils (0.0 - 0.7 /CUMM) 0.2 Absolute Basophils (0.0 - 0.2 /CUMM) 0 Toxicology Urine Opiates Screen (>2000 NG/ML) < 100 Methadone Screen (>300 NG/ML) < 40 Barbiturate Screen (>200 NG/ML) < 60 Ur Phencyclidine Scrn (>25 NG/ML) < 6.00 Amphetamines Screen (>1000 NG/ML) < 100 U Benzodiazepines Scrn (>200 NG/ML) 398 H Urine Cocaine Screen (>300 NG/ML) < 50 Urine Cannabis Screen (>50 NG/ML) < 5.00 Urines Urine Color (YEL,AMB,STR) YEL Urine Clarity (CLEAR) CLEAR Urine pH (5.0 - 8.0) 6.0 Ur Specific [place] (1.001 - 1.035) 1.025 Urine Protein (NEG,<30 MG/DL) NEG Urine Ketones (NEG) NEG Urine Nitrite (NEG) NEG Urine Bilirubin (NEG) NEG Urine Urobilinogen (0.1 - 1.0 EU/dl) 0.2 Ur Leukocyte Esterase (NEG) NEG Ur Microscopic EXAM NOT REQUIRED Urine Hemoglobin (NEG) NEG Urine Glucose (N MG/DL) NEG Urine Test NEGATIVE Imaging/Other Studies: CT scan with IV contrast: CLINICAL INFORMATION: Generalized abdominal pain, firmness and distention. Evaluate for obstruction. COMPARISON: Previous CT scans July and October 2015 and pelvic ultrasound August 2015 TECHNIQUE: Multidetector volumetric imaging was performed of the abdomen and pelvis following IV administration of 95 mL of Optiray 320 intravenous contrast. Sagittal and coronal reformatted images were obtained on the technologist's workstation. DLP: 246 mGy-cm FINDINGS: LUNG BASES: The visualized lung bases are unremarkable. LIVER, GALLBLADDER, AND BILIARY TREE: The liver is slightly low in attenuation suggestive of fatty infiltration. No focal liver lesion is seen. The gallbladder is unremarkable. PANCREAS: Unremarkable. SPLEEN: Unremarkable. ADRENAL GLANDS: Unremarkable. KIDNEYS AND URETERS: The kidneys are normal in size, shape, and attenuation. No hydronephrosis, hydroureter, or calculi seen. No perinephric stranding. BLADDER: Not optimally distended. GASTROINTESTINAL TRACT: The small and large bowel are unremarkable. The appendix is is not identified with certainty. No evidence of ascites is seen. ABDOMINAL WALL: No significant hernia is appreciated. LYMPH NODES: Normal. VASCULAR: Unremarkable. PELVIC VISCERA: The uterus and adnexa are unremarkable. OSSEOUS STRUCTURES: Unremarkable. IMPRESSION: Low-attenuation liver suggestive of fatty infiltration otherwise unremarkable exam. No evidence of obstruction. Abdominal x-ray unrevealing Transvaginal ultrasound IMPRESSION: Limited transabdominal imaging as described above. Normal sonographic appearance of the uterus and ovaries. There is a 2.1 cm dominant cyst in the right ovary, an expected physiologic finding in a reproductive age female patient. Normal arterial and venous spectral Doppler waveforms are identified within the ovaries bilaterally. No findings to suggest active ovarian torsion at the time of the scan. Assessment/Plan Assessment/Recommendations: Young female using NSAIDs, presenting with acute abdominal pain, reported possible hematemesis, and right-sided abdominal pain. She is also notes abdominal distention. Rule out peptic ulcer disease. The constellation of findings do not correlate with a clear, single diagnosis. CT scan, abdominal x- ray and transvaginal ultrasound have been unrevealing. It is possible that there is a dynamic ileus. Recommendations * IV PPI * EGD to be performed today * Further recommendations to follow Consult Acknowledgment - Thank you for your consult request.
--- NOTE | 2017-08-27 13:05 | Proc Note Endoscopy ---
Endoscopy Procedure Procedure Date: 08/27/17 Procedure Type: EGD w/biopsy Ceramic Tiler: Jon Aragon M.D. ASA Classification: II Indications: Abdominal pain Nausea, vomiting with hematemesis by history Melena by history Instrument: diagnostic gastroscope Meds Received: KRISTINA Patient's Tolerance: good Complications: none Extent Reached: third part of duodenum Procedure: The patient signed informed consent, and was medicated. Lidocaine pharyngeal spray was administered. Pulse oximetry, blood pressure and cardiac monitoring were performed continuously throughout the procedure. The Olympus high- definition gastroscope was inserted into the mouth and advanced to the duodenum. Retroflexion was performed within the stomach to examine the cardia. Careful examination was performed. Findings: The esophagus had normal caliber and contour. The mucosa was normal throughout. There were no varices. The GE junction at 40 cm was normal. There was no hiatal hernia. The stomach had normal distention, and active peristalsis. There was no old or fresh blood within the gastric cavity. The cardia was normal. Mucosa and folds of the stomach were normal throughout. Biopsies were obtained from body, incisura and antrum. The pyloric channel was normal. The duodenal bulb was normal. The mucosa and folds of the second and third portions of the duodenum were normal. Impression: * Normal EGD Recommendations: * Await pathology * Clear liquid diet * PPI (symptomatic therapy) * Anticholinergic medications such as dicyclomine 10-20 mg by mouth 4 times a day (before meals, bedtime) * Ondansetron when necessary for nausea/vomiting * Follow-up CBC in the morning * Consideration for colonoscopy, although will discuss with patient
[2017-08-27 14:09] VITALS: BP 102/48
[2017-08-27 23:10] VITALS: BP 108/71
--- NOTE | 2017-08-28 06:53 | PN- Housestaff ---
Thomas Alexander MD,[facility] 08/28/17 0652: Subjective Follow-up For: Abdominal pain R/o GI bleeding Subjective: Patient visited today, was lying in bed in mild acute distress, was alert and oriented, was on clear liquid diet. still complaining of abdominal pain No fever or chills, no shortness of breathing, no chest pain, no other events. Patient is planned to undergo colonoscopy tomorrow. will do prep tonight. Review of Systems Constitutional: Reports: see HPI. Objective Last 24 Hrs of Vital Signs/I&O Vital Signs Date Time Temp Pulse Resp B/P B/P Pulse O2 O2 Flow FiO2 Mean Ox Delivery Rate 08/28 1629 98.2 63 18 110/68 97 Room Air 08/28 1156 98.4 72 20 100/63 96 Room Air 08/28 0654 98.7 55 18 101/60 96 Room Air 08/27 2310 98.1 66 20 108/71 99 Room Air Intake & Output 08/28 1600 08/28 0800 08/28 0000 Intake Total 800 240 540 Output Total Balance 800 240 540 Intake, IV 300 Intake, Oral 800 240 240 Patient 115 lb Weight Physical Exam General Appearance: Alert, Oriented X3, Cooperative, No Acute Distress Skin: No Significant Lesion Skin Temp/Moisture Exam: Warm/Dry Sepsis Skin Exam (color): Normal for Ethnicity HEENT: Atraumatic, EOMI, Mucous Membr. moist/pink Cardiovascular: Normal S1, Normal S2 Lungs: Normal Air Movement Abdomen: RLQ tenderness, relatively gaurded Neurological: Normal Speech, Strength at 5/5 X4 Ext Extremities: No Edema Current Medications: Current Medications Sig/Tracey Start time Last Medication Dose Route Stop Time Status Admin Dicyclomine HCl 20 MG TIDAC/HS 08/27 1700 AC 08/28 PO 1604 Fluoxetine HCl 20 MG DAILY 08/27 1510 AC 08/28 PO 0950 Ketorolac 30 MG ONCE PRN 08/28 0900 DC 08/28 Tromethamine IV 0950 Morphine Sulfate 2 MG Q5 PRN 08/27 0520 AC 08/28 IV 1606 Ondansetron HCl 4 MG .STK-MED ONE 08/28 0652 DC IM 08/28 0653 Ondansetron HCl 4 MG Q6P PRN 08/27 0830 08/28 IV 1606 Pantoprazole Sodium 40 MG BID 08/26 2300 AC 08/28 IV 0950 Phenol 2 SPRAY Q2P PRN 08/27 1430 AC EXT Last 24 Hrs of Lab/Alex Results Last 24 Hrs of Labs/Mics: Laboratory Tests 08/28/17 0700: CBC w Diff NO MAN DIFF REQ, RBC 4.40, MCV 81.8, MCH 27.9, MCHC 34.1, RDW 13.7, MPV 7.1 L, Gran % 51.1, Lymphocytes % 37.1, Monocytes % 7.9, Eosinophils % 3.5, Basophils % 0.4, Absolute Granulocytes 3.4, Absolute Lymphocytes 2.4, Absolute Monocytes 0.5, Absolute Eosinophils 0.2, Absolute Basophils 0 Assessment/Plan Assessment: Patient is a 26-year-old female presented with dark stool and RLQ pain, nausea but no Vomiting h/o taking ibuprofen PMH: anxiety Vital signs on admission: T 97.4, BP 61, RR 20, BP 134/85, pulse ox 98% on room air Labs: H/H 12.7/37.9, BUN 18, BUN/Cr ratio 30 Patient was admitted to general medicine floor for management of following conditions: RLQ pain, dark stool, R/O GI bleeding No obstruction was found in imaging. Mclean scoring for appendicitis was insignificant. GI consult was placed and EGD was done which did not show any pathology. -Admit to general medicine floor -clear liq diet - NPO and bowel prep for colonscopy tomorrow -dicyclomin per GI -Follow consult placed -IV PPI twice a day, symptomatic -Trend CBC in am -Adequate pain control Diet: clear liq diet DVT prophylaxis: Alps, no pharmacological prophylaxis given still risk of GI bleed CODE STATUS: Full Code Problem List: 1. Intractable abdominal pain Pain Ratin Pain Location: RLQ Pain Goal: Pain 4 or less Pain Plan: Continue current plan Tomorrow's Labs & Rationales: SEBASTIEN Ling MD,Freda 08/28/17 1049: Attending MD Review Statement Attending Statement Attending MD Statement: examined this patient, discuss w/resident/PA/HUMAN RESOURCES DEPARTMENT SUPERVISOR, agreed w/resident/PA/HUMAN RESOURCES DEPARTMENT SUPERVISOR, reviewed EMR data (avail), discussed with nursing, discussed with case mgmt, amended to note Attending Assessment/Plan: Patient seen and examined. Resting comfortably unless in any obvious distress. No issues overnight reported by nursing staff. She continues to endorse right lower quadrant abdominal pain. She also complains of nausea. She believes her nausea is caused by 1 of her medications. On examination abdomen remains nondistended and soft. She has right lower quadrant tenderness. No rebound or guarding. Bowel sounds are normal. Case was discussed with the gastroenterology service. She will be undergoing colonoscopy evaluation tomorrow. She will undergo bowel prep later on today. Patient is in agreement with this plan. Since her morphine may be contributing to her nausea we will discontinue this and provide pain control with Toradol. This was discussed with the patient and she is in agreement. CBCs and chemistry have been stable. We will repeat labs if there is a change in her clinical status.
[2017-08-28 06:54] VITALS: BP 101/60
[2017-08-28 08:30] LABS: ABSOLUTE BASOPHIL COUNT 0 /CUMM (0.0-0.2); ABSOLUTE EOSINOPHIL COUNT 0.2 /CUMM (0.0-0.7); ABSOLUTE GRANULOCYTE CT 3.4 /CUMM (1.4-6.5); ABSOLUTE LYMPH COUNT 2.4 /CUMM (1.2-3.4); ABSOLUTE MONOCYTE COUNT 0.5 /CUMM (0.10-0.60); BASOPHIL % 0.4 % (0.0-2.0); EOSINOPHIL % 3.5 % (0-5); GRANULOCYTE % 51.1 % (42.2-75.2); MEAN CORPUSCULAR HGB 27.9 PG (27.0-31.0); MEAN CORPUSCULAR HGB CONC 34.1 G/DL (33.0-37.0); MEAN CORPUSCULAR VOLUME 81.8 FL (81.0-99.0); MEAN PLATELET VOLUME 7.1 FL (7.4-10.4); PLATELET COUNT 274 /CUMM (130-400); RBC DISTRIBUTION WIDTH 13.7 % (11.5-14.5); WHITE BLOOD CELL COUNT 6.6 /CUMM (4.8-10.8)
[2017-08-28 11:56] VITALS: BP 100/63
[2017-08-28 16:29] VITALS: BP 110/68
--- NOTE | 2017-08-28 16:38 | PN- Gastroenterology ---
Assessment/Plan GI Assessment/Recommendations: Acute onset of right lower quadrant pain, abdominal distention, with historical melena (resolved) in the setting of NSAID use. Unrevealing EGD/biopsies. Unrevealing imaging. Recommendations * Continue clear liquid diet; nothing by mouth after 6 AM tomorrow. * Continue PPI, ondansetron and dicyclomine. * Colonoscopy tomorrow. Please give one bottle of magnesium citrate this evening, and 2 500 mL tap water enemas between 6 and 8 AM tomorrow. * Gynecology consultation Subjective Subjective: Right lower quadrant pain persists, although it is improved. There is some improvement in distention as well. The patient has minor nausea, without vomiting, and has tolerated clear liquids. There has been no bowel movement, flatus, or blood per rectum. Objective Vital Signs and I&Os Vital Signs Date Time Temp Pulse Resp B/P B/P Pulse O2 O2 Flow FiO2 Mean Ox Delivery Rate 08/28 1629 98.2 63 18 110/68 97 Room Air 08/28 1156 98.4 72 20 100/63 96 Room Air 08/28 0654 98.7 55 18 101/60 96 Room Air 08/27 2310 98.1 66 20 108/71 99 Room Air Intake & Output 08/28 1600 08/28 0400 08/27 1600 08/27 0400 08/26 1600 08/26 0400 Intake Total 2931 000 2177 150 1000 Output Total 300 Balance 4949 203 6426 -150 1000 Intake, IV 300 9800 954 1942 Intake, Oral 1040 240 0 0 0 Number 0 0 Bowel Movements Output, 300 Gastric Drainage Patient 115 lb 115 lb 120 lb Weight Weight Reported by Patient Reported by Patient Measurement Method Physical Exam: Well-developed, well-nourished, in no apparent distress. Normal cognition. No adenopathy. No scleral icterus. Skin normal. Abdomen is mildly distended, with right lower quadrant tenderness to mild palpation. Extremities without edema, cyanosis. Pulses normal. Current Medications: Current Medications Sig/Tracey Start time Last Medication Dose Route Stop Time Status Admin Dicyclomine HCl 20 MG TIDAC/HS 08/27 1700 AC 08/28 PO 1604 Fluoxetine HCl 20 MG DAILY 08/27 1510 AC 08/28 PO 0950 Ketorolac 30 MG ONCE PRN 08/28 0900 DC 08/28 Tromethamine IV 0950 Morphine Sulfate 2 MG Q5 PRN 08/27 0520 AC 08/28 IV 1606 Ondansetron HCl 4 MG .STK-MED ONE 08/28 0652 DC IM 08/28 0653 Ondansetron HCl 4 MG Q6P PRN 08/27 0830 AC 08/28 IV 1606 Pantoprazole Sodium 40 MG BID 08/26 2300 AC 08/28 IV 0950 Phenol 2 SPRAY Q2P PRN 08/27 1430 AC EXT Results Pertinent Lab Results: Laboratory Tests 08/28 08/27 0700 0606 Chemistry Sodium (137 - 145 mmol/L) 137 Potassium (3.5 - 5.1 mmol/L) 3.7 Chloride (98 - 107 mmol/L) 102 Carbon Dioxide (22 - 30 mmol/L) 27 Anion Gap (5 - 16) 8 BUN (7 - 17 mg/dL) 8 Creatinine (0.5 - 1.0 mg/dL) 0.6 Estimated GFR (>60 ml/min) > 60 BUN/Creatinine Ratio (7 - 25 %) 13.3 TSH (0.270 - 4.200 uIU/mL) 2.730 Free T4 (0.79 - 2.35 ng/dL) 1.03 Hematology CBC w Diff NO MAN DIFF REQ NO MAN DIFF REQ WBC (4.8 - 10.8 /CUMM) 6.6 6.9 RBC (4.20 - 5.40 /CUMM) 4.40 4.18 L Hgb (12.0 - 16.0 G/DL) 12.3 11.6 L Hct (37 - 47 %) 36.0 L 34.3 L MCV (81.0 - 99.0 FL) 81.8 82.1 MCH (27.0 - 31.0 PG) 27.9 27.9 MCHC (33.0 - 37.0 G/DL) 34.1 34.0 RDW (11.5 - 14.5 %) 13.7 13.8 Plt Count (130 - 400 /CUMM) 274 276 MPV (7.4 - 10.4 FL) 7.1 L 6.9 L Gran % (42.2 - 75.2 %) 51.1 51.3 Lymphocytes % (20.5 - 51.1 %) 37.1 38.6 Monocytes % (1.7 - 9.3 %) 7.9 7.3 Eosinophils % (0 - 5 %) 3.5 2.3 Basophils % (0.0 - 2.0 %) 0.4 0.5 Absolute Granulocytes (1.4 - 6.5 /CUMM) 3.4 3.5 Absolute Lymphocytes (1.2 - 3.4 /CUMM) 2.4 2.7 Absolute Monocytes (0.10 - 0.60 /CUMM) 0.5 0.5 Absolute Eosinophils (0.0 - 0.7 /CUMM) 0.2 0.2 Absolute Basophils (0.0 - 0.2 /CUMM) 0 0 08/26 08/26 1313 1035 Chemistry Lactic Acid Cancelled Toxicology Urine Opiates Screen (>2000 NG/ML) < 100 Methadone Screen (>300 NG/ML) < 40 Barbiturate Screen (>200 NG/ML) < 60 Ur Phencyclidine Scrn (>25 NG/ML) < 6.00 Amphetamines Screen (>1000 NG/ML) < 100 U Benzodiazepines Scrn (>200 NG/ML) 398 H Urine Cocaine Screen (>300 NG/ML) < 50 Urine Cannabis Screen (>50 NG/ML) < 5.00 Urines Urine Color (YEL,AMB,STR) YEL Urine Clarity (CLEAR) CLEAR Urine pH (5.0 - 8.0) 6.0 Ur Specific [place] (1.001 - 1.035) 1.025 Urine Protein (NEG,<30 MG/DL) NEG Urine Ketones (NEG) NEG Urine Nitrite (NEG) NEG Urine Bilirubin (NEG) NEG Urine Urobilinogen (0.1 - 1.0 EU/dl) 0.2 Ur Leukocyte Esterase (NEG) NEG Ur Microscopic EXAM NOT REQUIRED Urine Hemoglobin (NEG) NEG Urine Glucose (N MG/DL) NEG Urine Test NEGATIVE 08/26 1013 Chemistry Sodium (137 - 145 mmol/L) 141 Potassium (3.5 - 5.1 mmol/L) 4.0 Chloride (98 - 107 mmol/L) 102 Carbon Dioxide (22 - 30 mmol/L) 28 Anion Gap (5 - 16) 11 BUN (7 - 17 mg/dL) 18 H Creatinine (0.5 - 1.0 mg/dL) 0.6 Estimated GFR (>60 ml/min) > 60 BUN/Creatinine Ratio (7 - 25 %) 30.0 H Glucose (65 - 99 mg/dL) 80 Lactic Acid (0.7 - 2.1 mmol/L) 0.8 Calcium (8.4 - 10.2 mg/dL) 9.8 Total Bilirubin (0.2 - 1.3 mg/dL) 0.7 AST (14 - 36 U/L) 28 ALT (9 - 52 U/L) 45 Alkaline Phosphatase (<127 U/L) 66 C-Reactive Prot, Quant (<1.0 mg/dL) 0.6 Total Protein (6.3 - 8.2 g/dL) 7.8 Albumin (3.5 - 5.0 g/dL) 4.6 Globulin (1.9 - 4.2 gm/dL) 3.2 Albumin/Globulin Ratio (1.1 - 2.2 %) 1.4 Lipase (23 - 300 U/L) 59 Hematology CBC w Diff NO MAN DIFF REQ WBC (4.8 - 10.8 /CUMM) 7.6 RBC (4.20 - 5.40 /CUMM) 4.64 Hgb (12.0 - 16.0 G/DL) 12.7 Hct (37 - 47 %) 37.9 MCV (81.0 - 99.0 FL) 81.8 MCH (27.0 - 31.0 PG) 27.3 MCHC (33.0 - 37.0 G/DL) 33.4 RDW (11.5 - 14.5 %) 13.6 Plt Count (130 - 400 /CUMM) 331 MPV (7.4 - 10.4 FL) 6.4 L Gran % (42.2 - 75.2 %) 54.1 Lymphocytes % (20.5 - 51.1 %) 36.3 Monocytes % (1.7 - 9.3 %) 7.0 Eosinophils % (0 - 5 %) 2.1 Basophils % (0.0 - 2.0 %) 0.5 Absolute Granulocytes (1.4 - 6.5 /CUMM) 4.1 Absolute Lymphocytes (1.2 - 3.4 /CUMM) 2.8 Absolute Monocytes (0.10 - 0.60 /CUMM) 0.5 Absolute Eosinophils (0.0 - 0.7 /CUMM) 0.2 Absolute Basophils (0.0 - 0.2 /CUMM) 0 Imaging/Other Studies: Gastric biopsies without significant inflammation.
[2017-08-28 20:30] VITALS: BP 106/65
[2017-08-29 06:24] VITALS: BP 110/68
--- NOTE | 2017-08-29 06:43 | PN- Housestaff ---
Thomas Alexander MD,[facility] 08/29/17 0642: Subjective Follow-up For: Abdominal pain Rule out GI bleeding Subjective: Patient visited today, was lying in bed comfortably in no acute distress, was alert and oriented. Patient was recieving bowel prep. Reported 2 episodes of bleeding (drops of blood when defecating), not mixed with stool last night. DID not save the stool sample. No fever or chills, no shortness of breathing, no chest pain, no other events. Planned to undergo colonoscopy today. If stable will be discharged. Review of Systems Constitutional: Reports: see HPI. Objective Last 24 Hrs of Vital Signs/I&O Vital Signs Date Time Temp Pulse Resp B/P B/P Pulse O2 O2 Flow FiO2 Mean Ox Delivery Rate 08/29 1038 98.2 60 18 104/78 100 08/29 0624 97.5 78 18 110/68 98 08/28 2030 98.6 58 20 106/65 99 Room Air 08/28 1629 98.2 63 18 110/68 97 Room Air Intake & Output 08/29 1600 08/29 0800 08/29 0000 Intake Total 240 1180 Output Total 450 Balance 240 730 Intake, IV 0 40 Intake, Oral 240 1140 Number 2 5 Bowel Movements Output, Urine 450 Physical Exam General Appearance: Alert, Oriented X3, Cooperative, No Acute Distress Skin: No Significant Lesion Skin Temp/Moisture Exam: Warm/Dry Sepsis Skin Exam (color): Normal for Ethnicity HEENT: Atraumatic, EOMI, Mucous Membr. moist/pink Neck: No JVD Cardiovascular: Normal S1, Normal S2 Lungs: Normal Air Movement Abdomen: relatively gaurded, tender in RLQ Neurological: Normal Speech Extremities: No Edema Current Medications: Current Medications Sig/Tracey Start time Last Medication Dose Route Stop Time Status Admin Chlorhexidine 1 GM .STK-MED ONE 08/29 1000 DC Gluconate TOP 08/29 1001 Dicyclomine HCl 20 MG TIDAC/HS 08/27 1700 AC 08/29 PO 1123 Fluoxetine HCl 20 MG DAILY 08/27 1510 AC 08/29 PO 1123 Magnesium Citrate 300 ML ONE ONE 08/28 1945 CAN PO 08/28 194 Magnesium Citrate 300 ML ONE ONE 08/28 1745 DC 08/28 PO 08/28 Melatonin 5 MG ONCE ONE 08/29 0030 DC 08/29 PO 08/29 0031 0037 Morphine Sulfate 2 MG ONCE ONE 08/28 2245 DC 08/28 IV 08/28 2246 2251 Morphine Sulfate 2 MG Q5 PRN 08/27 0520 DC 08/29 IV 0654 Ondansetron HCl 4 MG Q6P PRN 08/27 0830 AC 08/29 IV 0654 Oxycodone/ 1 TAB Q4P PRN 08/29 1100 AC 08/29 Acetaminophen PO 1124 Pantoprazole Sodium 40 MG BID 08/26 2300 AC 08/29 IV 0713 Patient Medication 1 ED ONE ONE 08/29 1130 DC Teaching ED 08/29 1131 Phenol 2 SPRAY Q2P PRN 08/27 1430 AC EXT Simethicone 1 UNIT .STK-MED ONE 08/29 1000 DC PO 08/29 1001 Last 24 Hrs of Lab/Alex Results Last 24 Hrs of Labs/Mics: Laboratory Tests 08/29/17 1122: C-React Prot High Sens 2.8, ESR Westergren 6 08/29/17 0630: CBC w Diff NO MAN DIFF REQ, RBC 4.51, MCV 81.7, MCH 27.7, MCHC 34.0, RDW 13.6, MPV 7.1 L, Gran % 44.5, Lymphocytes % 42.4, Monocytes % 8.9, Eosinophils % 3.5, Basophils % 0.7, Absolute Granulocytes 3.2, Absolute Lymphocytes 3.1, Absolute Monocytes 0.7 H, Absolute Eosinophils 0.3, Absolute Basophils 0.1 Assessment/Plan Assessment: Patient is a 26-year-old female presented with dark stool and RLQ pain, nausea but no Vomiting h/o taking ibuprofen PMH: anxiety Vital signs on admission: T 97.4, BP 61, RR 20, BP 134/85, pulse ox 98% on room air Labs: H/H 12.7/37.9, BUN 18, BUN/Cr ratio 30 Patient was admitted to general medicine floor for management of following conditions: RLQ pain, dark stool, R/O GI bleeding No obstruction was found in imaging. Mclean scoring for appendicitis was insignificant. GI consult was placed and Upper GI endoscopy as well as colonscopy was performed without significant any pathology. Dicyclomin was administred per GI. After rulling out GI reasons Ayala/member of the legislative council consult was placed. Diet: clear liq diet DVT prophylaxis: Alps, no pharmacological prophylaxis given still risk of GI bleed CODE STATUS: Full Code With stablization it was planned to discharge patient with recommendation to follow in outpatient. Problem List: 1. Abdominal distention 2. Intractable abdominal pain 3. Status post endoscopy Pain Ratin Pain Location: Abdominal RLQ Pain Goal: Pain 4 or less Pain Plan: Continue current plan Tomorrow's Labs & Rationales: None Prudencio Ling MDjackiejessy 08/29/17 1401: Attending MD Review Statement Attending Statement Attending MD Statement: examined this patient, discuss w/resident/PA/EARLY CHILDHOOD SPECIAL EDUCATOR, agreed w/resident/PA/EARLY CHILDHOOD SPECIAL EDUCATOR, reviewed EMR data (avail), discussed with nursing, discussed with case mgmt, amended to note Attending Assessment/Plan: Patient seen and examined. She had a colonoscopy earlier on today. When I walked into the room she was lying very comfortably in her bed watching a movie on her tablet device. My question about how she was feeling she stated that she is intense pain. She reports that following the colonoscopy earlier on today she developed intense right lower abdominal pain. She denied any nausea vomiting. She was started on Toradol been controlled yesterday but states this is not helpful. She has been started on Percocet for pain control today but states that this also was not helpful. She is requesting to go back on intravenous morphine for pain control. On examination the abdomen is nondistended, soft, she has tenderness in the right lower quadrant. She has no rebound or guarding. Bowel sounds are normal. She also complains of right lower extremity cramping. On examination she has no pedal edema. She has no swelling or tenderness house bilaterally. She has been declining to use the bilateral compression devices for DVT prophylaxis. However she does not appear to have clinical evidence of DVT at present. Colonoscopy done today did not reveal any evidence of infection or inflammation. She was also seen by the CHANGE MANAGEMENT FACILITATOR service today. Appearance is noted on image and is reported to be incidental and unlikely the cause of her pain. Her symptoms persist despite use of analgesics and antispasmodics therapy. She now reports that pain is significantly worse after undergoing colonoscopy. Recommendations: -Continue pain control with Percocet for now. Her pain scale is reported as 3- 4. We'll follow-up with the gastroenterology service regarding her report of pain exacerbation following colonoscopy. -If no further recommendations would recommend outpatient follow-up with pain management.
[2017-08-29] MEDS ORDERED: OMEPRAZOLE20 M2 PO (07:08)
--- NOTE | 2017-08-29 07:21 | Patient Discharge Instructions ---
Discharge Instructions General Discharge Information You were seen/treated for: Abdominal pain Rule out intestinal bleeding Ovarian cyst You had these procedures: Upper and lower GI endoscopy Watch for these problems: Severe abdominal pain, tenderness, nausea, vomiting, dizziness, bleeding, or worsening of any other symptoms. Special Instructions: Please follow with your PCP within one week of discharge. Please follow with your liquefaction and regasification helper within 1 week of discharge. Please follow with your CORRESPONDENCE SCHOOL TEACHER specialist within 1 week of discharge. Diet Continue normal diet: Yes Activity Full Activity/No Limits: No Activity Self Limited: Yes Acute Coronary Syndrome Inclusion Criteria At DC or during hospital stay patient has or had the following: ACS DIAGNOSIS No Discharge Core Measures Meds if any: Prescribed or Continued at Discharge Meds if any: NOT Prescribed or Continued at Discharge Congestive Heart Failure Inclusion Criteria At DC or during hospital stay patient has or had the following: CHF DIAGNOSIS No Discharge Core Measures Meds if any: Prescribed or Continued at Discharge Meds if any: NOT Prescribed or Continued at Discharge Cerebrovascular accident Inclusion Criteria At DC or during hospital stay patient has or had the following: CVA/TIA Diagnosis No Discharge Core Measures Meds if any: Prescribed or Continued at Discharge Meds if any: NOT Prescribed or Continued at Discharge Venous thromboembolism Inclusion Criteria VTE Diagnosis No VTE Type NONE VTE Confirmed by (Test) NONE Discharge Core Measures - Per Current guidelines, there needs to be overlap - treatment for the first 5 days of Warfarin therapy. - If discharged on Warfarin prior to 5 days of - overlap therapy, the patient will need to be - assessed for post discharge needs including - *Post discharge parental anticoagulation - *Warfarin and/or parental anticoagulation education - *Follow up date to check INR post discharge At least 5 days overlap therapy as Inpatient No Meds if any: Prescribed or Continued at Discharge Note: Overlap Therapy is Warfarin and Anticoagulant Meds if any: NOT Prescribed or Continued at Discharge
[2017-08-29 08:16] LABS: ABSOLUTE BASOPHIL COUNT 0.1 /CUMM (0.0-0.2); ABSOLUTE EOSINOPHIL COUNT 0.3 /CUMM (0.0-0.7); ABSOLUTE GRANULOCYTE CT 3.2 /CUMM (1.4-6.5); ABSOLUTE LYMPH COUNT 3.1 /CUMM (1.2-3.4); ABSOLUTE MONOCYTE COUNT 0.7 /CUMM (0.10-0.60); BASOPHIL % 0.7 % (0.0-2.0); EOSINOPHIL % 3.5 % (0-5); GRANULOCYTE % 44.5 % (42.2-75.2); HEMATOCRIT 36.9 % (37-47); MEAN CORPUSCULAR HGB 27.7 PG (27.0-31.0); MEAN CORPUSCULAR VOLUME 81.7 FL (81.0-99.0); MEAN PLATELET VOLUME 7.1 FL (7.4-10.4); PLATELET COUNT 297 /CUMM (130-400); RBC DISTRIBUTION WIDTH 13.6 % (11.5-14.5); RED BLOOD CELL CT 4.51 /CUMM (4.20-5.40); WHITE BLOOD CELL COUNT 7.3 /CUMM (4.8-10.8)
--- NOTE | 2017-08-29 09:36 | Proc Note Colonoscopy ---
Colonoscopy Procedure Procedure Date: 08/29/17 Procedure Type: colonoscopy Shank Stitcher: Jon Aragon M.D. ASA Classification: II Indications: Right lower quadrant pain, abdominal distention Initial description of melena, negative EGD Instrument (Colonoscope): single channel Meds Received: MAC Patient's Tolerance: good Complications: none Extent Reached: terminal ileum Prep: good Procedure: The patient signed informed consent, was placed in the Sarmiento position, and medicated. Examination of the rectum was normal. The Olympus high-definition variable stiffness colonoscope was inserted through the anus and advanced to the terminal ileum. Retroflexion was performed in order to examine the rectum. Careful examination was performed. There was adequate withdrawal time. Findings: The rectum was normal. The mucosa, folds and vasculature of the sigmoid to the cecum were normal. There were no inflammatory lesions. The terminal ileum was normal. Impression: * Normal colonoscopy/ileoscopy Recommendations: * Gynecology evaluation * Check sedimentation rate, C-reactive protein * Continue anticholinergic medications * Low fiber diet
[2017-08-29 10:38] VITALS: BP 104/78
--- NOTE | 2017-08-29 13:55 | Cons- OBGYN ---
General Information and HPI Consulting Request Date of Consult: 08/29/17 Requested By: Sushil BEDOLLA,Freda Reason for Consult: Abdominal pain and ovarian cyst Source of Information: patient Exam Limitations: no limitations History of Present Illness: Patient admitted with abdominal pain on the . Reports having taken Motrin for tendonitis but also had picnic meal on Saturday as well. Following that had repeated episodes of hematemesis and melana. Last menstrual on August 18, 2017 History of Chlamydia in the remote past Monogamous relationship Last 2016 History of PID Allergies/Medications Allergies: Coded Allergies: latex (Intermediate, LUC SKIN CONTACT, LATEX WITH POWDER IF INH ANAPHYLAXIS 01/21/16) poison lazaro extract (Mild, RASH 01/21/16) azithromycin (VOMIT PROFUSELY, STARTED VOMITING BLOOD ENDED UP HOSPITALIZED 08/02) gluten (CELIAC DISEASE RUNS IN FAMILY, PT REPORTS GLUTEN SENSITIVITY 01/21/16) lactose (LACTOSE INTOLERANT 01/21/16) venom-honey bee (BEE VENOM (HONEY BEE)) (ANAPHYLAXIS 01/21/16) Home Med List: Alprazolam 0.25 MG TABLET 1 TAB PO BIDP PRN ANXIETY (Reported) Fluoxetine HCl 20 MG CAPSULE 1 CAP PO DAILY MENTAL HEALTH (Reported) Norethindrone-Ethinyl Estrad (Alyacen 1-35-28 Tablet) 1 MG-35 MCG TABLET 1 TAB PO DAILY BC (Reported) Omeprazole 20 MG CAPSULE.DR 1 CAP PO DAILY STOMACH HEALTH Current Medications: Current Medications Sig/Tracey Start time Last Medication Dose Route Stop Time Status Admin Chlorhexidine 1 GM .STK-MED ONE 08/29 1000 DC Gluconate TOP 08/29 1001 Dicyclomine HCl 20 MG TIDAC/HS 08/27 1700 AC 08/29 PO 1123 Fluoxetine HCl 20 MG DAILY 08/27 1510 AC 08/29 PO 1123 Magnesium Citrate 300 ML ONE ONE 08/28 1945 CAN PO 08/28 194 Magnesium Citrate 300 ML ONE ONE 08/28 1745 DC 08/28 PO 08/28 174 1947 Melatonin 5 MG ONCE ONE 08/29 0030 DC 08/29 PO 08/29 0031 0037 Morphine Sulfate 2 MG ONCE ONE 08/28 2245 DC 08/28 IV 08/28 2246 2251 Morphine Sulfate 2 MG Q5 PRN 08/27 0520 DC 08/29 IV 0654 Ondansetron HCl 4 MG Q6P PRN 08/27 0830 AC 08/29 IV 0654 Oxycodone/ 1 TAB Q4P PRN 08/29 1100 AC 08/29 Acetaminophen PO 1124 Pantoprazole Sodium 40 MG BID 08/26 2300 AC 08/29 IV 0713 Patient Medication 1 ED ONE ONE 08/29 1130 DC Teaching ED 08/29 1131 Phenol 2 SPRAY Q2P PRN 08/27 1430 AC EXT Simethicone 1 UNIT .STK-MED ONE 08/29 1000 DC PO 08/29 1001 Past History Medical History Blood Transfusion Hx: No Neurological: migraine EENT: NONE Cardiovascular: NONE Respiratory: NONE Gastrointestinal: NONE Hepatic: NONE Renal: NONE Musculoskeletal: NONE Psychiatric: NONE Endocrine: NONE Blood Disorders: THALCEMIA Cancer(s): NONE STAFFING ASSISTANT/Reproductive: chlamydia, HPV, miscarriage, PID OVARIAN CYST left ovary cyst rupture Surgical History Pertinent Surgical History: non-contributory Family History Relations & Conditions If Any: Relation not specified for: *No pertinent family history Psychosocial History Where Do You Live? Home Services at Home: None Primary Language: Pakistani Smoking Status: Never Smoked ETOH Use: occasional use Illicit Drug Use: denies illicit drug use Functional Ability ADLs Independent: dressing, eating, toileting, bathing. Ambulation: independent IADLs Independent: shopping, housework, finances, food prep, telephone, transportation , medication admin. Review of Systems Review of Systems Constitutional: Denies: no symptoms. EENTM: Denies: no symptoms. Cardiovascular: Denies: no symptoms. Respiratory: Denies: no symptoms. GI: Denies: abdominal pain, melena, vomiting. Genitourinary: Denies: no symptoms. Musculoskeletal: Denies: back pain. Skin: Denies: no symptoms. Neurological/Psychological: Denies: no symptoms. Hematologic/Endocrine: Denies: bleeding. Immunologic/Allergic: Denies: no symptoms. Exam & Diagnostic Data Vital Signs and I&O Vital Signs Date Time Temp Pulse Resp B/P B/P Pulse O2 O2 Flow FiO2 Mean Ox Delivery Rate 08/29 1038 98.2 60 18 104/78 100 08/29 0624 97.5 78 18 110/68 98 08/28 2030 98.6 58 20 106/65 99 Room Air 08/28 1629 98.2 63 18 110/68 97 Room Air Intake & Output 08/29 0800 08/29 0000 08/28 1600 08/28 0800 08/28 0000 Intake Total 240 1180 800 240 540 Output Total 450 Balance 240 730 800 240 540 Intake, IV 0 40 300 Intake, Oral 240 1140 800 240 240 Number 2 5 Bowel Movements Output, Urine 450 Patient 52.163 kg Weight Physical Exam General Appearance: well developed/nourished Head: atraumatic Gastrointestinal: soft, non-tender Neurologic/Psych: no motor/sensory deficits, awake, alert, oriented x 3 Last 24 Hours of Labs: Laboratory Tests 08/29 08/29 1122 0630 Chemistry C-React Prot High Sens (1.0 - 3.0 mg/L) 2.8 Hematology CBC w Diff NO MAN DIFF REQ WBC (4.8 - 10.8 /CUMM) 7.3 RBC (4.20 - 5.40 /CUMM) 4.51 Hgb (12.0 - 16.0 G/DL) 12.5 Hct (37 - 47 %) 36.9 L MCV (81.0 - 99.0 FL) 81.7 MCH (27.0 - 31.0 PG) 27.7 MCHC (33.0 - 37.0 G/DL) 34.0 RDW (11.5 - 14.5 %) 13.6 Plt Count (130 - 400 /CUMM) 297 MPV (7.4 - 10.4 FL) 7.1 L Gran % (42.2 - 75.2 %) 44.5 Lymphocytes % (20.5 - 51.1 %) 42.4 Monocytes % (1.7 - 9.3 %) 8.9 Eosinophils % (0 - 5 %) 3.5 Basophils % (0.0 - 2.0 %) 0.7 Absolute Granulocytes (1.4 - 6.5 /CUMM) 3.2 Absolute Lymphocytes (1.2 - 3.4 /CUMM) 3.1 Absolute Monocytes (0.10 - 0.60 /CUMM) 0.7 H Absolute Eosinophils (0.0 - 0.7 /CUMM) 0.3 Absolute Basophils (0.0 - 0.2 /CUMM) 0.1 ESR Westergren (0 - 20 MM) 6 Imaging Results: Ultrasound reviewed and normal appearing uterus and ovary on right with 2.1 cm simple follicular cyst. No free fluid Assessment/Plan Assessment/Plan Patient admitted for abdominal pain. Gynecologically she has history of PID and chlamydia. Last screening for both pap and cervical cultures were 2016 and negative. Monogamous relationship and using control pills at present with LMP 11 days ago. Ovarian cyst noted at present is incidental finding in my opinion and she is not with bilateral abdmoinal tenderness and on ocps so PID not likely. No clinical findings of ovarian torsion. No evidence of free fluid in pelvis to entertain cyst rupture either. Her symptoms are GI related and she admits to using larger doses of Motrin for pain relief on an empty stomach. Pap not indicated until 2019. Not likely to be Gut related vein thrombosis as these would be seen on CT imaging especially if IV contrast was given. I will sign off at present. Thank you for the courtest of the consultation. Problem List: 1. Abdominal pain 2. Ovarian cyst Consult Acknowledgment - Thank you for your consult request.
[2017-08-29 14:43] VITALS: BP 120/60
[2017-08-29 21:23] VITALS: BP 102/70
[2017-08-30 06:34] VITALS: BP 123/71
--- NOTE | 2017-08-30 07:00 | PN- Housestaff ---
Thomas Alexander MD,[facility] 08/30/17 0659: Subjective Follow-up For: Abdominal pain Rule out GI bleeding Subjective: Patient visited today, was lying in bed comfortably in no acute distress, was alert and oriented. No fever or chills, no shortness of breathing, no chest pain, no other events. Patient stable to be discharged. Review of Systems Constitutional: Reports: see HPI. Objective Last 24 Hrs of Vital Signs/I&O Vital Signs Date Time Temp Pulse Resp B/P B/P Pulse O2 O2 Flow FiO2 Mean Ox Delivery Rate 08/30 0634 98.0 77 20 123/71 99 Room Air 08/29 2123 98.4 68 18 102/70 97 Room Air 08/29 1443 98.2 69 20 120/60 98 Room Air 08/29 1038 98.2 60 18 104/78 100 Intake & Output 08/30 1600 08/30 0800 08/30 0000 Intake Total 250 830 Output Total 600 Balance 250 230 Intake, IV 10 30 Intake, Oral 240 800 Number 0 0 Bowel Movements Output, Urine 600 Physical Exam General Appearance: Alert, Oriented X3, Cooperative, No Acute Distress Skin: No Significant Lesion Skin Temp/Moisture Exam: Warm/Dry Sepsis Skin Exam (color): Normal for Ethnicity HEENT: Atraumatic, EOMI, Mucous Membr. moist/pink Cardiovascular: Normal S1, Normal S2 Lungs: Normal Air Movement Abdomen: improved tenderness Neurological: Normal Speech Current Medications: Current Medications Sig/Tracey Start time Last Medication Dose Route Stop Time Status Admin Chlorhexidine 1 GM .STK-MED ONE 08/29 1000 DC Gluconate TOP 08/29 1001 Dicyclomine HCl 20 MG TIDAC/HS 08/27 1700 AC 08/30 PO 0739 Fluoxetine HCl 20 MG DAILY 08/27 1510 AC 08/30 PO 0840 Morphine Sulfate 2 MG Q5 PRN 08/27 0520 DC 08/29 IV 0654 Omeprazole 20 MG DAILY AC 08/30 0700 AC 08/30 PO 0555 Ondansetron HCl 4 MG .STK-MED ONE 08/29 1815 DC IM 08/29 1816 Ondansetron HCl 4 MG Q6P PRN 08/27 0830 AC 08/29 IV 1819 Oxycodone/ 1 TAB Q4P PRN 08/29 1100 AC 08/30 Acetaminophen PO 0555 Pantoprazole Sodium 40 MG BID 08/26 2300 DC 08/29 IV 0713 Patient Medication 1 ED ONE ONE 08/29 1130 DC Teaching ED 08/29 1131 Phenol 2 SPRAY Q2P PRN 08/27 1430 AC EXT Promethazine HCl 25 MG ONCE ONE 08/30 0500 DC 08/30 PO 08/30 0501 0555 Simethicone 1 UNIT .STK-MED ONE 08/29 1000 DC PO 08/29 1001 Tramadol HCl 50 MG ONCE ONE 08/29 2245 DC 08/29 PO 08/29 2246 2247 Trimethobenzamide HCl 200 MG ONCE ONE 08/30 0500 CAN IM 08/30 0501 Last 24 Hrs of Lab/Alex Results Last 24 Hrs of Labs/Mics: Laboratory Tests 08/29/17 1122: C-React Prot High Sens 2.8, ESR Westergren 6 Assessment/Plan Assessment: Patient is a 26-year-old female presented with dark stool and RLQ pain, nausea but no Vomiting h/o taking ibuprofen PMH: anxiety Vital signs on admission: T 97.4, BP 61, RR 20, BP 134/85, pulse ox 98% on room air Labs: H/H 12.7/37.9, BUN 18, BUN/Cr ratio 30 Patient was admitted to general medicine floor for management of following conditions: RLQ pain, dark stool, R/O GI bleeding No obstruction was found in imaging. Mclean scoring for appendicitis was insignificant. GI consult was placed and Upper GI endoscopy as well as colonscopy was performed without significant any pathology. Dicyclomin was administred per GI. Ayala/barbed wire machine operator consult was placed which advices no significant findings. Patient was stable to be discharged with pain medication and recommendations to follow in outpatient. Diet: clear liq diet DVT prophylaxis: Alps, no pharmacological prophylaxis given still risk of GI bleed CODE STATUS: Full Code Problem List: 1. Intractable abdominal pain Pain Ratin Pain Location: Continue current plan Pain Goal: Pain 4 or less Pain Plan: Percocet for discharge Tomorrow's Labs & Rationales: None Freda Ling MD 08/30/17 1324: Attending Review Statement Attending Statement Attending MD Statement: examined this patient, discuss w/resident/PA/POLICE MANAGER, agreed w/resident/PA/POLICE MANAGER, reviewed EMR data (avail), discussed with nursing, discussed with case mgmt, amended to note Attending Assessment/Plan: Seen and examined. Resting comfortably and does not appear to be in any acute distress. Colonoscopy results discussed with the patient. No evidence of any acute colonic pathology. She was also seen by the [facility] service yesterday, their evaluation is that the right-sided cyst noted as he is allergic in nature. Patient does admit to some right lower quadrant pain. She reports that the pain improved with current analgesic regimen. She will be discharged home on a short course of analgesic therapy as well as antispasmodic therapy. She has been advised to follow-up with her primary care provider and the gastroenterology service as an outpatient. She verbalized understanding and was discharged home in stable medical condition.Her extensive workup has not revealed any clear single diagnosis as etiology of her pain.
[2017-08-30] MEDS ORDERED: PERCOCET 5-3251 EACH PO ×3 (08:44→09:25)
[2017-08-30] MEDS ORDERED: DICYCLOMINE HCL20 M1 PO (09:25)
[2017-08-30] MEDS ORDERED: OMEPRAZOLE20 M2 PO (09:25)
--- NOTE | 2017-08-30 10:23 | Discharge Summary ---
Visit Information Visit Dates Admission Date: 08/26/17 Discharge Date: 08/30/17 Hospital Course Course Attending Physician: Freda Ling MD Primary Care Physician: Sai Colon MD Hospital Course: Patient was a 26-year-old female presented with dark stool and RLQ pain, nausea but no Vomiting h/o taking ibuprofen PMH: anxiety Vital signs on admission: T 97.4, BP 61, RR 20, BP 134/85, pulse ox 98% on room air Labs: H/H 12.7/37.9, BUN 18, BUN/Cr ratio 30 Patient was admitted to general medicine floor for management of following conditions: RLQ pain, dark stool, R/O GI bleeding No obstruction was found in intial imaging. Mclean scoring for appendicitis was insignificant. GI consult was placed and Upper GI endoscopy as well as colonscopy was performed without finding any significant pathology. Dicyclomin was administred per GI for symptomatic treatment. Ayala/bean picker consult was placed who recommended outpatient follow up as no significant findings were evident in evaluations. Patient was stable to be discharged with recommendations below. Allergies: Coded Allergies: latex (Intermediate, LUC SKIN CONTACT, LATEX WITH POWDER IF INH ANAPHYLAXIS 01/21/16) poison lazaro extract (Mild, RASH 01/21/16) azithromycin (VOMIT PROFUSELY, STARTED VOMITING BLOOD ENDED UP HOSPITALIZED 08/02) gluten (CELIAC DISEASE RUNS IN FAMILY, PT REPORTS GLUTEN SENSITIVITY 01/21/16) lactose (LACTOSE INTOLERANT 01/21/16) venom-honey bee (BEE VENOM (HONEY BEE)) (ANAPHYLAXIS 01/21/16) Significant Procedures: Upper and lower GI endoscopy Disposition Summary Disposition Principal Diagnosis: Abdominal pain, dynamic ileus Additional Diagnosis: Anxiety Ovarian cyst Discharge Disposition: home or self care Discharge Instructions General Discharge Information Code Status: Full Code Patient's Diet: Low fiber diet, to advance as tolerated Patient's Activity: as tolerated Follow-Up Instructions/Appts: Please follow with your PCP within one week of discharge. Please follow with your major assembly inspector within 1 week of discharge. Please follow with your BOTTLE HOUSE PUMPER specialist within 1 week of discharge. Medications at Discharge Discharge Medications: Continue taking these medications: Norethindrone-Ethinyl Estrad (Alyacen 1-35-28 Tablet) 1 MG-35 MCG TABLET 1 Tablet ORAL DAILY Comments: NOT GIVEN IN HOSPITAL Fluoxetine HCl (Fluoxetine HCl) 20 MG CAPSULE 1 Capsule ORAL DAILY Qty = 30 Comments: Last Taken: 08/30/17 Time: 8:30 AM Alprazolam (Alprazolam) 0.25 MG TABLET 1 Tablet ORAL 2 x Daily as needed as needed for ANXIETY Qty = 60 Comments: NOT GIVEN IN HOSPITAL Start taking the following new medications: Oxycodone HCl/Acetaminophen (Percocet 5-325 MG Tablet) 5 MG-325 MG TABLET 1 Tablet ORAL EVERY 4 HOURS NEEDED as needed for PAIN SCALE 7-10 (SEVERE) Qty = 24 No Refills Comments: Last Taken: 08/30/17 Time: 6:00 AM Omeprazole (Omeprazole) 20 MG CAPSULE.DR 1 Capsule ORAL DAILY Qty = 30 No Refills Instructions: . Comments: Last Taken: 08/30/17 Time: 6:00 AM Dicyclomine HCl (Dicyclomine HCl) 20 MG TABLET 1 Tablet ORAL THREE TIMES DAILY Qty = 15 No Refills Comments: Last Taken: 08/30/17 Time: 8:00 AM Copies To: Isaiah BEDOLLA,Sai Ledezma; Elpidio BEDOLLA,Joel; Margo BEDOLLA,Jon Ledezma Attending MD Review Statement Documenting Attending: Freda Ling MD Other Findings: Discharged in stable condition.
== END 2017-08-30 12:45 | DRG 392 ==
LOC: ERH 09:19 → ENTRNSPT 16:40 → EDTRNSPT 16:49 → EDTRNSPTSTS 16:49 → CMPTRNSPT 17:04 → ERHI 18:05 → 2NB 18:05 → ENRESERV 19:46 → ENTRNSPT 21:04 → 2NB 21:26 → CMPTRNSPT 21:40 → 2NB 08-27 08:03 → ENPENDDIS 08-30 09:24 → 2NB 08-30 12:45
PROVIDERS: Internal Medicine; Physician Assistant; Radiology Vascular & Interventional Radiology
PROC: 0DB68ZX Excision of Stomach, Via Natural or Artificial Opening Endoscopic, Diagnostic (ICD-10-PCS; 2017-08-27)
PROC: 0DJD8ZZ Inspection of Lower Intestinal Tract, Via Natural or Artificial Opening Endoscopic (ICD-10-PCS; principal; 2017-08-29)
DX: K29.70 Gastritis, unspecified, without bleeding (principal); F41.9 Anxiety disorder, unspecified; K92.1 Melena; R10.9 Unspecified abdominal pain; Z88.8 Allergy status to other drugs, medicaments and biological substances; Z91.040 Latex allergy status; T39.395A Adverse effect of other nonsteroidal anti-inflammatory drugs [NSAID], initial encounter
CPT/HCPCS: 2NBP; 2NSBP; 36592; 71045; 74021; 74177; 80307; 81003; 81025; 82436; 87804; 87804-59; 88305; 88312; 96361; 96374; 96375; 96376; J0131; J1885; J2405; J2765; J7042; J7060